=== PATIENT | female | born 1985 | race Caucasian/White ===

== ENCOUNTER → 2020-02-18 13:37 | Outpatient (BNVA) | payer OTHER, MEDICAID, SELFPAY | PROVIDERS: Family Provider Internal Medicine; Visit Provider Nurse Practitioner Women's Health | DX: O34.81 Maternal care for other abnormalities of pelvic organs, first trimester (principal); N83.11 Corpus luteum cyst of right ovary; O20.9 Hemorrhage in early pregnancy, unspecified; Z36.89 Encounter for other specified antenatal screening; Z3A.01 Less than 8 weeks gestation of pregnancy | CPT/HCPCS: 76817 ==

== ENCOUNTER → 2020-02-22 13:47 | Outpatient (BNVA) | payer OTHER, SELFPAY | PROVIDERS: Family Provider Internal Medicine; Visit Provider Nurse Practitioner Women's Health | DX: O09.899 Supervision of other high risk pregnancies, unspecified trimester (principal); Z86.718 Personal history of other venous thrombosis and embolism | CPT/HCPCS: 85027 ==

== ENCOUNTER → 2020-03-15 11:24 | Outpatient (BNVA) | payer OTHER, MEDICAID, SELFPAY | PROVIDERS: Family Provider Internal Medicine; Visit Provider Obstetrics & Gynecology | DX: O09.899 Supervision of other high risk pregnancies, unspecified trimester (principal); O21.9 Vomiting of pregnancy, unspecified; O09.291 Supervision of pregnancy with other poor reproductive or obstetric history, first trimester | CPT/HCPCS: 80053; 80307; 84315 ==

== ENCOUNTER → 2020-03-28 09:35 | Outpatient (BNVA) | payer OTHER, MEDICAID, SELFPAY | PROVIDERS: Family Provider Internal Medicine; PCP Internal Medicine; Visit Provider Obstetrics & Gynecology | DX: O10.919 Unspecified pre-existing hypertension complicating pregnancy, unspecified trimester (principal); Z3A.00 Weeks of gestation of pregnancy not specified | CPT/HCPCS: 80076; 82950; 84315; 86592; 86762; 86803; 86850; 86900; 87340; 87491; 87591; 88175 ==

== ENCOUNTER 2020-03-29 07:01 | Outpatient (CLI) | payer OTHER, MEDICAID, SELFPAY ==
--- NOTE | 2020-03-29 07:15 | USCV_ITS ---
Sarika Elizabeth Age: 34 Gender: F : 1985 Exam Date: 03/29/2020 07:19 Ordering Phys: Nita Guadarrama MD Technologist: Glenroy Perez Exam Location: [facility] [place] Indication: CHF BP: 130 / 80 HR: 87 Rhythm: Sinus Technical Quality: Suboptimal MEASUREMENTS (Male / Female) Normal Values 2D ECHO LV Diastolic Diameter PLAX 3.5 cm 4.2 - 5.9 / 3.9 - 5.3 cm LV Systolic Diameter PLAX 2.3 cm IVS Diastolic Thickness 0.9 cm 0.6 - 1.0 / 0.6 - 0.9 cm IVS Systolic Thickness 1.2 cm LVPW Diastolic Thickness 1.1 cm 0.6 - 1.0 / 0.6 - 0.9 cm LVPW Systolic Thickness 1.1 cm LVOT Diameter 2.0 cm LV Ejection Fraction 2D Teich 65.7 % LV Ejection Fraction MOD 2C 59.9 % LV Ejection Fraction 2C AL 59.4 % LA Diameter 3.3 cm LA Width 3.0 cm LA Height 4.9 cm RA Width 3.1 cm RA Height 4.8 cm Aorta at Sinotubular Diameter 2.4 cm M-MODE LV Diastolic Diameter MM 4.1 cm 4.2 - 5.9 / 3.9 - 5.3 cm LV Systolic Diameter MM 2.6 cm LV Ejection Fraction MM Teich 66.6 % IVS Diastolic Thickness MM 1.2 cm 0.6 - 1.0 / 0.6 - 0.9 cm IVS Systolic Thickness MM 1.6 cm LVPW Diastolic Thickness MM 1.1 cm 0.6 - 1.0 / 0.6 - 0.9 cm LVPW Systolic Thickness MM 1.5 cm RV Diastolic Diameter MM 2.0 cm Aortic Annulus Diameter 2.6 cm LA Ao Ratio MM 1.3 MV E Point Septal Separation 0.8 cm DOPPLER AV Peak Velocity 137.0 cm/s LVOT Peak Velocity 109.0 cm/s AV Area Cont Eq vti 2.4 cm squared AV Area Cont Eq pk 2.5 cm squared MV Area PHT 3.0 cm squared Mitral E to A Ratio 1.2 MV E' Velocity 18.0 cm/s Mitral E to MV E' Ratio 6.1 Mitral E to LV E' Lateral Ratio 4.7 Mitral E to LV E' Septal Ratio 8.7 TR Peak Velocity 150.0 cm/s TR Peak Gradient 9.0 mmHg TV Peak E Velocity 99.0 cm/s Right Atrial Pressure 3.0 mmHg Pulmonary Artery Systolic Pressu 12.0 mmHg FINDINGS Left Ventricle Normal left ventricular size, systolic function and wall thickness, with no regional wall motion abnormalities. Normal left ventricular wall thickness. Normal diastolic filling pattern. Left ventricular ejection fraction is estimated at 60 %. Right Ventricle The right ventricle is normal in size and function. Right Atrium The right atrium is normal in size. Left Atrium The left atrium is normal in size. Mitral Valve Structurally normal mitral valve without significant stenosis or prolapse. There is no mitral regurgitation. Aortic Valve Structurally normal aortic valve without significant sclerosis or stenosis. There is no aortic regurgitation. Tricuspid Valve Structurally normal tricuspid valve without significant stenosis or regurgitation. Pulmonary artery systolic pressure is normal. Pulmonic Valve Pulmonic valve not well visualized. Pericardium Normal pericardium without effusion. Aorta Normal ascending aorta dimension. CONCLUSIONS Normal transthoracic echocardiogram. No change from the previous echo dictated 06/09/2018 Dr. Gerard Madsen MD (Electronically Signed) Final Date: 29 Mar 2020 08:36 S
== END 2020-03-29 07:02 | disposition home or self-care (01) ==
PROVIDERS: Family Provider Internal Medicine; PCP Internal Medicine; Visit Provider Obstetrics & Gynecology
DX: Z86.79 Personal history of other diseases of the circulatory system (principal); I50.9 Heart failure, unspecified
CPT/HCPCS: 93306

== ENCOUNTER 2020-06-01 07:37 | Outpatient (CLI) | payer OTHER, MEDICAID, SELFPAY ==
[2020-06-01 08:02] LABS: Total Volume, Urine 1125 mL
[2020-06-01 08:29] LABS: Total Protein 24 Hour Urine 78.8 mg/24HR (0-150)
== END 2020-06-01 07:38 | disposition home or self-care (01) ==
PROVIDERS: PCP Internal Medicine; Visit Provider Obstetrics & Gynecology
DX: O09.291 Supervision of pregnancy with other poor reproductive or obstetric history, first trimester (principal)
CPT/HCPCS: 84156

== ENCOUNTER → 2020-07-20 13:57 | Outpatient (BNVA) | payer OTHER, SELFPAY | PROVIDERS: PCP Internal Medicine; Visit Provider Obstetrics & Gynecology | DX: O09.893 Supervision of other high risk pregnancies, third trimester (principal); O34.211 Maternal care for low transverse scar from previous cesarean delivery; Z86.79 Personal history of other diseases of the circulatory system; O09.293 Supervision of pregnancy with other poor reproductive or obstetric history, third trimester; O10.913 Unspecified pre-existing hypertension complicating pregnancy, third trimester; Z3A.29 29 weeks gestation of pregnancy | CPT/HCPCS: 80053; 82950; 84315; 84550; 85027 ==

== ENCOUNTER 2020-08-10 15:35 | Outpatient (CLI) | payer OTHER, MEDICAID, SELFPAY ==
--- NOTE | 2020-08-10 15:45 | USCV_ITS ---
Sarika Elizabeth Age: 34 Gender: F : 1985 Exam Date: 08/10/2020 15:55 Ordering Phys: Nita Guadarrama MD Technologist: Glenroy Perez Exam Location: [facility] [place] Indication: CHF BP: 135 / 87 HR: 91 Rhythm: Sinus Technical Quality: Fair MEASUREMENTS (Male / Female) Normal Values 2D ECHO LV Diastolic Diameter PLAX 4.2 cm 4.2 - 5.9 / 3.9 - 5.3 cm LV Systolic Diameter PLAX 2.4 cm IVS Diastolic Thickness 1.1 cm 0.6 - 1.0 / 0.6 - 0.9 cm IVS Systolic Thickness 1.2 cm LVPW Diastolic Thickness 1.0 cm 0.6 - 1.0 / 0.6 - 0.9 cm LVPW Systolic Thickness 1.2 cm LVOT Diameter 1.9 cm LV Ejection Fraction 2D Teich 69.7 % LV Ejection Fraction MOD 2C 38.7 % LV Ejection Fraction 2C AL 40.2 % LA Diameter 3.0 cm LA Width 4.1 cm LA Height 4.5 cm RA Width 3.3 cm RA Height 4.7 cm Aorta at Sinotubular Diameter 1.1 cm M-MODE LV Diastolic Diameter MM 4.3 cm 4.2 - 5.9 / 3.9 - 5.3 cm LV Systolic Diameter MM 2.7 cm LV Ejection Fraction MM Teich 69.2 % IVS Diastolic Thickness MM 1.0 cm 0.6 - 1.0 / 0.6 - 0.9 cm IVS Systolic Thickness MM 1.4 cm LVPW Diastolic Thickness MM 0.9 cm 0.6 - 1.0 / 0.6 - 0.9 cm LVPW Systolic Thickness MM 1.7 cm RV Diastolic Diameter MM 1.4 cm Aortic Annulus Diameter 3.6 cm LA Ao Ratio MM 0.9 MV E Point Septal Separation 0.7 cm DOPPLER AV Peak Velocity 149.0 cm/s LVOT Peak Velocity 95.0 cm/s AV Area Cont Eq vti 2.5 cm squared AV Area Cont Eq pk 1.9 cm squared MV Area PHT 5.0 cm squared Mitral E to A Ratio 1.1 MV E' Velocity 48.0 cm/s Mitral E to MV E' Ratio 7.3 Mitral E to LV E' Lateral Ratio 6.7 Mitral E to LV E' Septal Ratio 8.0 TR Peak Velocity 111.0 cm/s TR Peak Gradient 4.9 mmHg TV Peak E Velocity 76.0 cm/s Right Atrial Pressure 3.0 mmHg Pulmonary Artery Systolic Pressu 7.9 mmHg PV Peak Velocity 134.0 cm/s FINDINGS Left Ventricle Normal left ventricular size and systolic function, EF 55 %. No regional wall motion abnormalities. Right Ventricle The right ventricle is normal in size and function. Right Atrium The right atrium is normal in size. Left Atrium The left atrium is normal in size. Mitral Valve No gross abnormalities noted Aortic Valve No gross abnormalities noted Tricuspid Valve No gross abnormalities noted Pulmonic Valve No gross abnormalities noted Pericardium Normal pericardium without effusion. Aorta Normal ascending aorta dimension. CONCLUSIONS Normal left ventricular size and systolic function, EF 55 %. No regional wall motion abnormalities. Normal cardiac chamber sizes No significant stenotic valvular lesions There is no pericardial effusion. Technically difficult study because of the poor ultrasonic window. Compared to the previous study from 03/29/2020, there may not be a significant change Dr Jorge A Jacome MD FACC (Electronically Signed) Final Date: 10 August 2020 19:57 S
== END 2020-08-10 15:36 | disposition home or self-care (01) ==
LOC: US 15:36
PROVIDERS: PCP Internal Medicine; Visit Provider Obstetrics & Gynecology
DX: I50.9 Heart failure, unspecified (principal)
CPT/HCPCS: 93306

== ENCOUNTER 2020-08-17 10:53 | Outpatient (CLI) | payer OTHER, MEDICAID, SELFPAY ==
[2020-08-17 11:14] VITALS: BP 119/70; PULSE 83; RESP 17; TEMP 36.7
[2020-08-17 11:30] VITALS: BP 114/71; PULSE 82
[2020-08-17 11:44] VITALS: BP 114/71; PULSE 82; RESP 17; TEMP 36.7; BMI 38.2
--- NOTE | 2020-08-17 14:00 | PM.ACPR ---
Procedure/Consent Procedure Narrative: NONSTRESS TEST: Place of test: [facility] [place] Indication: Chronic hypertension at 33 weeks gestation Date of test: 08/17/2020 Baseline: 135 Variability: Moderate variability Accelerations: Accelerations present Decelerations: No decelerations Tocometry: no Contractions INTERPRETATION: NST reactive, continue kick counts
== END 2020-08-17 11:43 | disposition home or self-care (01) ==
LOC: OPOB 11:04 → OBGYN 12:00
PROVIDERS: PCP Internal Medicine; Visit Provider Obstetrics & Gynecology
DX: O16.9 Unspecified maternal hypertension, unspecified trimester (principal); Z3A.00 Weeks of gestation of pregnancy not specified
CPT/HCPCS: 12345; 59025; 81000; 99211

== ENCOUNTER 2020-08-24 14:30 | Outpatient (CLI) | payer OTHER, MEDICAID, SELFPAY ==
[2020-08-24 14:45] VITALS: BP 119/67; PULSE 91
[2020-08-24 14:48] VITALS: RESP 18; TEMP 36.8; BMI 38.9
[2020-08-24 15:00] VITALS: BP 114/63; PULSE 92
[2020-08-24 15:15] VITALS: BP 113/69; PULSE 97
[2020-08-24 15:20] VITALS: BP 113/69; PULSE 97; RESP 18
--- NOTE | 2020-08-24 16:40 | P.PCN_ITS ---
Procedure/Consent Procedure Narrative: NONSTRESS TEST: Place of test: [facility] [place] Indication: Chronic hypertension, history of DVT Date and time of test: 08/24/2020, 3 PM Baseline: 135 Variability: Moderate variability Accelerations: Accelerations present Decelerations: No decelerations Tocometry: no Contractions INTERPRETATION: NST reactive , continue kick counts
== END 2020-08-24 15:20 | disposition home or self-care (01) ==
LOC: OPOB 14:39 → OBGYN 14:40
PROVIDERS: PCP Internal Medicine; Visit Provider Obstetrics & Gynecology
DX: O16.9 Unspecified maternal hypertension, unspecified trimester (principal); Z3A.00 Weeks of gestation of pregnancy not specified
CPT/HCPCS: 12345; 59025; 81000

== ENCOUNTER → 2020-08-26 00:01 | Outpatient (BNVA) | payer OTHER, MEDICAID, SELFPAY | PROVIDERS: PCP Internal Medicine; Visit Provider Obstetrics & Gynecology | DX: O09.291 Supervision of pregnancy with other poor reproductive or obstetric history, first trimester (principal) | CPT/HCPCS: 84156 ==

== ENCOUNTER 2020-08-29 09:50 | Outpatient (CLI) | payer OTHER, MEDICAID, SELFPAY ==
[2020-08-29 10:05] VITALS: RESP 18; TEMP 36.8
[2020-08-29 10:15] VITALS: BMI 38.9
[2020-08-29 10:17] LABS: Add Urine Microscopic? NO
[2020-08-29 10:25] LABS: Basophils % 0.2 %; Eosinophils # 0.1 10^3/uL (0.0-0.8); Eosinophils % 1.1 %; Hematocrit 33.7 % (37.0-47.0); Lymphocytes % 15.5 %; Mean Corpuscular HGB Conc 32.6 g/dL (30.0-36.0); Mean Corpuscular Hemoglobin 27.6 pg (28.0-34.0); Mean Corpuscular Volume 84.7 fL (81-99); Mean Platelet Volume 12.2 fL (7.4-10.4); Monocytes # 0.4 10^3/uL (0.2-0.9); Monocytes % 5.7 %; Neutrophils # 4.89 10^3/uL (1.8-7.7); Neutrophils % 77.2 %; Nucleated Red Blood Cells % 0 %; Platelet Count 212 10^3/cmm (130-400); Red Blood Count 3.98 10^6/uL (4.1-5.3); Red Cell Distribution Width 13.9 % (12.1-15.1); White Blood Count 6.3 10^3/uL (4.0-10.0)
[2020-08-29] MEDS: diphenhydrAMINE 50 mg/mL SDV 1mL IM (10:28)
[2020-08-29] MEDS: promethazine 25 mg/mL SDV 1 mL IM (10:29)
[2020-08-29] MEDS: HYDROcodone-acetaminophen 5-325 mg Tablet 1 TAB PO (10:29)
[2020-08-29 10:36] LABS: Protein Urine Neg (Negative); Specific Gravity, Urine 1.015 (1.005-1.030); Urine Appearance Clear (CLEAR); Urine Color Yellow (Yellow); pH Urine 6 (5-7)
[2020-08-29 10:37] LABS: Alanine Aminotransferase 13 U/L (0-33); Albumin Level 3.5 g/dL (3.5-5.2); Alkaline Phosphatase 138 IU/L (35-105); Anion Gap 13.7 (5-19); Aspartate Amino Transferase 14 U/L (0-32); Bilirubin Urine 1+ (Negative); Blood Urea Nitrogen 6 mg/dL (6-20); Blood Urine Neg (Negative); Calcium 8.5 mg/dL (8.5-10.5); Carbon Dioxide 19 mmol/L (22-29); Chloride 105 mmol/L (98-107); Globulin 2.6 g/dL (1.3-4.6); Glomerular Filtration Rate 181.6 mL/min (90-130); Glucose 113 mg/dL (65-115); Glucose Urine UA Norm (Normal); Ketones Urine Negative (Negative); Leukocyte Esterase Urine Negative (Negative); Nitrate Urine Negative (Negative); Osmolality Calculated 276 mOsm/kg (285-295); Potassium 3.7 mmol/L (3.5-5.1); Sodium 134 mmol/L (136-145); Total Bilirubin 0.6 mg/dL (0.15-1.2); Total Protein 6.1 g/dL (6.6-8.7); Uric Acid 3.4 mg/dL (2.4-5.7); Urobilinogen Urine 4 mg/dL (Negative)
[2020-08-29 10:41] LABS: Urine Creatinine 159 mg/dL (28-217)
[2020-08-29 10:42] LABS: UPRO/UCREAT Ratio 0.22 mg/mg CR; Urine Protein Random 35 mg/dL
[2020-08-29 11:15] VITALS: BP 114/61; PULSE 74
[2020-08-29 11:24] VITALS: BP 108/65; PULSE 72
[2020-08-29 11:45] VITALS: BP 108/65; RESP 18
== END 2020-08-29 11:45 | disposition home or self-care (01) ==
LOC: OPOB 09:57 → OBGYN 09:58
PROVIDERS: PCP Internal Medicine; Visit Provider Obstetrics & Gynecology
DX: O16.9 Unspecified maternal hypertension, unspecified trimester (principal); Z3A.00 Weeks of gestation of pregnancy not specified
CPT/HCPCS: 36415; 80053; 81003; 82570; 84156; 84550; 85025; 96372; 99211; J1200; J2550

== ENCOUNTER 2020-08-31 09:30 | Outpatient (CLI) | payer OTHER, MEDICAID, SELFPAY ==
[2020-08-31 09:30] VITALS: BMI 38.9
[2020-08-31 09:42] VITALS: BP 132/74; PULSE 93; RESP 16; TEMP 36.8
[2020-08-31 10:02] VITALS: BP 127/66; PULSE 97
--- NOTE | 2020-09-03 16:00 | PM.ACPR ---
NST (Non-Stress Test) NST : 10 Para: 3,339 Due date: 10/05/20 Gestational age (weeks): 35 Indications: Chronic hypertension complicating in third trimester Test: NST Time: 09:42 Length of test in Minutes: 25 Contractions: None Fetus Fetus 1: Baseline FHR BMP:: 135 Variability: Moderate Accelerations: Present Decelerations: None Reacticity: Reactive Interpretation/Plan Interpretation by: Saud Felton Comments: Reactive NST. Time Out Is a Time Out required?: No
== END 2020-08-31 10:08 | disposition home or self-care (01) ==
LOC: OPOB 09:37
PROVIDERS: Absent Provider Obstetrics & Gynecology; PCP Internal Medicine; Visit Provider Obstetrics & Gynecology
DX: O16.9 Unspecified maternal hypertension, unspecified trimester (principal); Z3A.00 Weeks of gestation of pregnancy not specified
CPT/HCPCS: 12345; 59025; 81000; 99211

== ENCOUNTER 2020-09-07 16:56 | Outpatient (CLI) | payer OTHER, MEDICAID, SELFPAY ==
[2020-09-07 16:56] VITALS: BMI 38.9
[2020-09-07 17:05] VITALS: BP 136/86; PULSE 104
[2020-09-07 17:26] VITALS: BP 148/84; PULSE 91
[2020-09-07 17:37] VITALS: RESP 18; TEMP 36.7
--- NOTE | 2020-09-10 18:01 | PM.ACPR ---
NST (Non-Stress Test) NST : 10 Para: 3,339 Due date: 10/05/20 Gestational age (weeks): 36 Indications: Prepregnancy hypertension complicating in third trimester at 36-0/7 weeks gestation Test: NST Time: 17:04 Length of test in Minutes: 32 Contractions: None Fetus Fetus 1: Baseline FHR BMP:: 135 Variability: Moderate Accelerations: Present Decelerations: None Reacticity: Reactive Interpretation/Plan Interpretation by: Saud Felton Comments: Reactive NST without contractions. Time Out Is a Time Out required?: No
== END 2020-09-07 17:40 | disposition home or self-care (01) ==
LOC: OPOB 17:00 → OBGYN 17:01
PROVIDERS: PCP Obstetrics & Gynecology; Visit Provider Obstetrics & Gynecology
DX: O16.9 Unspecified maternal hypertension, unspecified trimester (principal); Z3A.00 Weeks of gestation of pregnancy not specified
CPT/HCPCS: 12345; 59025; 81000; 87081; 99211

== ENCOUNTER → 2020-09-09 12:36 | Outpatient (BNVA) | payer OTHER, MEDICAID, SELFPAY | PROVIDERS: PCP Obstetrics & Gynecology; Visit Provider Obstetrics & Gynecology | DX: O09.899 Supervision of other high risk pregnancies, unspecified trimester (principal) | CPT/HCPCS: 80053; 82570; 84156; 84550; 85027; 87635 ==

== ENCOUNTER 2020-09-14 05:13 | Inpatient (IN) | payer OTHER, MEDICAID, SELFPAY ==
--- NOTE | 2020-08-26 11:59 | P.ANESASSM_ITS ---
Pre-Anesthetic Assessment Pre-Anesthetic Assessment: Height/Weight: Height 1.6 m Preop Diagnosis: IUP Proposed Procedure: Operation Date: 09/21/20 07:20 Proposed Procedures p Section Repeat With Tubal [id number] O09.899 O34.219 Z86.79 Z30.2(Not Applicable) - Saud Felton MD Familial anesthetic complications: None Social: Social History: No alcohol and No tobacco Exam: Pre-Anes Outpt Exam: alert, oriented x 3, clear to auscultation bilaterally and regular rate & rhythm Airway: Cervical ROM: WNL MP: 1 Dentition: Full Pulmonary: Pulmonary: [place] CV/HEM: CV/HEM: CHF (perpartum cardiomyopathy 3 years ago, was in ICU for 5 days. Echo now shows recovery, but patient complains of orthopnea, [place]. Saw dr. marie, put on lasix), DVT (with previous ) and HTN (hx preeclampsia) Comments: echo 07/31 CONCLUSIONS Normal left ventricular size and systolic function, EF 55 %. No regional wall motion abnormalities. Normal cardiac chamber sizes No significant stenotic valvular lesions There is no pericardial effusion. Technically difficult study because of the poor ultrasonic window. Compared to the previous study from 03/29/2020, there may not be a significant change Anesthetic Plan: ASA status: 3 Anesthesia: Regional (specify below) Risk of > 500 ml blood loss (7ml/kg in children): No Other Pertinent Information: Now taking lasix prn for sob, may have c-sections [address] ramesh [facility] Anesthesia PFSH: Medical History Factitious disorder Dx in 2003 H/O deep venous thrombosis She states that in March 2016 she had a DVT in her left calf while undergoing her first cycle of IVF with hormones and was told that the DVT was due to hormones Hypertension Reports that she had preeclampsia and developed congestive heart failure in the time. She states that she was on a lot of blood pressure medications at that time and was able to wean off of this and is just on hydrochlorothiazide at this time. She has not really been monitoring her blood pressures prior to finding out she was . -EKG done on 03/17/2020 showed sinus rhythm No pertinent past medical history Denies asthma, seizures, PE, diabetes. PCP: Dr. Boo Surgical History H/O section delivery performed in 2017 delivery of triplets. Surgery performed in [facility]-operative reports were received on 06/02/2020 and scanned- low transverse delivery via Pfannenstiel incision, 2 layer closure without any extensions. H/O dilation and curettage 2003-Performed at [facility] in [place], [place] 03/19/09-suction dilation and curettage done for incomplete Performed by Dr Rj Ha at [facility] in [place], [place]. H/O laparoscopy 10/06/2008--Performed by Dr Rj Ha at [facility] in [place], [place] -Return for left ovarian cyst and pelvic pain. During laparoscopy patient was noted to have omental adhesions adherent to the left pelvic sidewall down underneath the left ovary also indications of the left fallopian tube to the ovary. Uterus was normal and appendix was normal as well. Operative report has been scanned. H/O laparoscopy 03/2014--Diagnostic laparoscopy done for pelvic pain by Dr. Topete. Adhesions were taken down. H/O tubal ligation 05/31/2010--done --Bilateral partial salpingectomy Performed by Dr Ha at [facility] in [place], [place] History of cholecystectomy 2004- Performed at [facility] in [place], [place]. she states that her gallbladder was first removed and that she had gallstones into the bile duct she was then transferred to [place] with a second surgery was performed to remove the gallstones from the bile duct. History of incision and drainage 08/29/16--scalp History of reversal of tubal ligation 07/2015 laparotomy with reanastomosis of fallopian tubes. Right and left ampullary infundibular anastomosis was done Performed by Dr Rosio Bishop in [facility]. Family History Father Heart disease Hypertension Mother Hypertension Diabetes Hyperlipidemia Family/Other Breast cancer Maternal aunt, diagnosed at age 40 Sister Breast cancer diagnosed at age 40 Heart disease 2 sisters Grandmother Suicide patnernal Denies family history of Colon cancer Ovarian cancer Uterine cancer Data Anesthesia Cardiac Studies: No Data to Display
[2020-09-14] VITALS (28 sets, daily range): BP systolic 112–135; BP diastolic 67–87; PULSE 64–94; RESP 16–18; TEMP 36.4–36.8; O2SAT 96–100; BMI 39.4
[2020-09-14] MEDS: lactated ringers 1,000 ML 999 ML IV (06:13)
[2020-09-14] MEDS: famotidine 20 mg/2 mL INJ IVP (06:26)
[2020-09-14] MEDS: citric acid-sodium citrate 30 mL UDC PO (06:26)
[2020-09-14 06:28] LABS: Basophils % 0.2 %; Eosinophils # 0.1 10^3/uL (0.0-0.8); Eosinophils % 1.8 %; Hemoglobin 10.6 g/dL (11.5-15.3); Lymphocytes # 1.2 10^3/uL (0.8-4.8); Lymphocytes % 17.5 %; Mean Corpuscular HGB Conc 32.1 g/dL (30.0-36.0); Mean Platelet Volume 12.7 fL (7.4-10.4); Monocytes # 0.5 10^3/uL (0.2-0.9); Monocytes % 7.6 %; Neutrophils # 4.75 10^3/uL (1.8-7.7); Neutrophils % 72.3 %; Nucleated Red Blood Cells % 0 %; Platelet Count 194 10^3/cmm (130-400); Red Blood Count 3.93 10^6/uL (4.1-5.3); Red Cell Distribution Width 13.9 % (12.1-15.1); White Blood Count 6.6 10^3/uL (4.0-10.0)
[2020-09-14] MEDS: metoclopramide 5 mg/mL SDV 2 mL 10 MG IVP (06:28)
--- NOTE | 2020-09-14 06:53 | P.ANESASSM_ITS ---
Pre-Anesthetic Assessment Pre-Anesthetic Assessment: Height/Weight: Height 1.6 m Pulse BP 94 120/83 09/14/20 06:35 09/14/20 06:35 Preop Diagnosis: IUP Proposed Procedure: Operation Date: 09/14/20 06:30 Proposed Procedures p Section Repeat With Tubal [id number] O09.899 O34.219 Z86.79 Z30.2(Not Applicable) - Saud Felton MD Last Intake: 00:00 Social: Social History: No alcohol and No tobacco Exam: Pre-Anes Outpt Exam: alert and oriented x 3 Airway: Submandibular: WNL Cervical ROM: WNL MP: 2 Pulmonary: Pulmonary: SOB (with exertion) CV/HEM: CV/HEM: CHF (started after previous followed by cardiology EF 60%), DVT (takes heparin 5000 units sub Q taken at 1700 yesterday stopped greater than 12 hours will proceed with spinal) and HTN : : None reported Hepatic: Hepatic: None reported GI: GI: GERD Metabolic: Metabolic: None reported Musc/skel: Musc/skel: None reported Neuropsych: Neuropsych: None reported Anesthetic Plan: ASA status: 3 Anesthesia: Anesthesia Evaluation and Regional (specify below) PFSH Anesthesia PFSH: Medical History Factitious disorder Dx in 2003 H/O deep venous thrombosis She states that in March 2016 she had a DVT in her left calf while undergoing her first cycle of IVF with hormones and was told that the DVT was due to hormones Hypertension Reports that she had preeclampsia and developed congestive heart failure in the time. She states that she was on a lot of blood pressure medications at that time and was able to wean off of this and is just on hydrochlorothiazide at this time. She has not really been monitoring her blood pressures prior to finding out she was . -EKG done on 03/17/2020 showed sinus rhythm No pertinent past medical history Denies asthma, seizures, PE, diabetes. PCP: Dr. Boo Surgical History H/O section delivery performed in 2017 delivery of triplets. Surgery performed in [facility]-operative reports were received on 06/02/2020 and scanned- low transverse delivery via Pfannenstiel incision, 2 layer closure without any extensions. H/O dilation and curettage 2003-Performed at [facility] [place], [place] 03/19/09-suction dilation and curettage done for incomplete Performed by Dr Rj Ha at [facility] in [place], [place]. H/O laparoscopy 10/06/2008--Performed by Dr Rj Ha at [facility] in [place], [place] -Return for left ovarian cyst and pelvic pain. During laparoscopy patient was noted to have omental adhesions adherent to the left pelvic sidewall down underneath the left ovary also indications of the left fallopian tube to the ovary. Uterus was normal and appendix was normal as well. Operative report has been scanned. H/O laparoscopy 03/2014--Diagnostic laparoscopy done for pelvic pain by Dr. Topete. Adhesions were taken down. H/O tubal ligation 05/31/2010--done --Bilateral partial salpingectomy Performed by Dr Ha at [facility] [place], [place] History of cholecystectomy 2004- Performed at [facility] [place], [place]. she states that her gallbladder was first removed and that she had gallstones into the bile duct she was then transferred to [place] with a second surgery was performed to remove the gallstones from the bile duct. History of incision and drainage 08/29/16--scalp History of reversal of tubal ligation 07/2015 laparotomy with reanastomosis of fallopian tubes. Right and left ampullary infundibular anastomosis was done Performed by Dr Rosio Bishop in [facility] [place] [facility]. Family History Father Heart disease Hypertension Mother Hypertension Diabetes Hyperlipidemia Family/Other Breast cancer Maternal aunt, diagnosed at age 40 Sister Breast cancer diagnosed at age 40 Heart disease 2 sisters Grandmother Suicide patnernal Denies family history of Colon cancer Ovarian cancer Uterine cancer Social History Smoking and tobacco status: never smoked Alcohol intake: never Data Anesthesia CBC & Chem 7: 09/14/20 05:55 Other Labs: Laboratory Results - last 48 hr 09/14/20 05:55 WBC 6.6 RBC 3.93 L Hgb 10.6 L Hct 33.0 L MCV 84.0 MCH 27.0 L MCHC 32.1 RDW 13.9 Plt Count 194 MPV 12.7 H Neut % (Auto) 72.3 Lymph % (Auto) 17.5 [place] % (Auto) 7.6 Eos % (Auto) 1.8 Baso % (Auto) 0.2 Neut # (Auto) 4.75 Lymph # (Auto) 1.2 [place] # (Auto) 0.5 Eos # (Auto) 0.1 Baso # (Auto) 0.0 Nucleated RBC % (auto) 0 Nucleated RBCs # 0.0 Cardiac Studies: No Data to Display
[2020-09-14 07:19] LABS: Urine Creatinine 173 mg/dL (28-217)
[2020-09-14 07:24] LABS: UPRO/UCREAT Ratio 0.18 mg/mg CR; Urine Protein Random 31 mg/dL
--- NOTE | 2020-09-14 08:24 | PM.OP ---
Operative Report Date of procedure: September 14, 2020 OPERATIVE REPORT Date of surgery: 09/14/2020 Date of dictation: 09/14/2020 Preoperative diagnosis: Chronic hypertension, repeat delivery and desires sterilization Postoperative diagnosis/findings: Baby girl 7/8 Procedure done: Repeat low transverse delivery with a total salpingectomy for sterilization Specimens removed/disposition of specimens: Right and left fallopian tube sent to pathology Surgeon: Dr. Nita Bhatt retail loan originator assistant: Kimberly Lam Anesthesia: Spinal anesthesia Estimated blood loss: 800 ml Intravenous fluids: 800 Urine output: 50 mL of clear urine at the end of procedure Medications: As per anesthesia records Complications: None, patient was left to recover in a stable condition PROCEDURE: After consent was obtained, patient was taken to the operating room where spinal anesthesia was placed without difficulty. She was placed supine on the table with a left lateral wedge. Chua catheter and SCDs were placed. The abdomen was shaved and then prepped with duo prep. She was draped in a sterile fashion. After checking adequacy of anesthesia, a Pfannenstiel incision was made over her old incision. The incision was carried down to the fascia using the Bovie. The fascia was nicked in the midline and the fascial incision was extended laterally using curved Mayos. The inferior aspect of the fascia was grasped with jimmy clamps and dissected off from the underlying rectus muscle. This was repeated again superiorly without any difficulty. The rectus muscle was . A gege was made in the peritoneum and the peritoneal incision was carried inferiorly taking care to proceed in layers so as to avoid the bladder. The peritoneal incision was extended superiorly as well. Dense omental adhesions were noted onto the anterior abdominal wall and this was taken down after ensuring that there was no bowel involved. This was taken down and a combination of sharp and cautery dissection. The uterus was noted to be rotated to the left. The bladder peritoneum was grasped with smooth forceps a bladder flap was created. Minimal bladder lesions were noted. The bladder blade was replaced thus protecting the bladder. A LOW TRANSVERSE UTERINE INCISION was made with a scalpel till the amniotic membrane was reached. The uterine incision was then extended laterally using bandage scissors. Amniotomy was done with Allis clamps and clear amniotic fluid was drained. The head of the baby was brought up to the level of the incision and delivered with fundal pressure. The remainder of body followed without any difficulty. The nose and mouth were suctioned, the umbilical cord was clamped and cut and the baby was handed off to the waiting tie puller, Dr. Garduno. The placenta was delivered spontaneously with fundal massage. It was noted to be intact and was discarded. The interior of the uterus was cleaned of all clot and debris and was noted to be tanvi well. The uterus was exteriorized. The uterine incision was closed with 0 Vicryl in a running interlocking manner. Good hemostasis and reapproximation was obtained. Second imbricating layer was done without any difficulty and good hemostasis and reapproximation was obtained. The abdomen was irrigated and the gutters were cleaned of clot and debris. Normal tubes and ovaries were noted bilaterally. At this time we will proceed with total salpingectomy. Using the abdominal Voyant the mesosalpinx first on the right side and on the left side was grasped clamped, cauterized and then cut proceeding from the fimbriated end to its cornual end without any difficulty. The entire fallopian tube was taken out first on the right and then on the left side without any difficulty. Good hemostasis was achieved. Next attention was turned to clamp the cornual end and this was cauterized well. Sites of surgery remain hemostatic. The uterus was placed back into the abdomen and uterine incision was noted to be hemostatic. The peritoneum was closed with a 2-0 plain in a continuous stitch. The rectus muscle was reapproximated with 2-0 plain suture in a mattress stitch. Good hemostasis was noted in the rectus muscle layer. The fascia was inspected for any defects and none were found and the fascia was closed with 0 Vicryl in continuous stitch. The subcutaneous plane was then irrigated and hemostasis was obtained using the Bovie. The subcutaneous plane was then reapproximated using 2-0 plain suture in a continuous manner. The skin was then closed with 4-0 Monocryl in a subcuticular fashion. Good reapproximation and hemostasis was noted. Steri-Strips were applied. The incision was dressed with Telfa ,ABD and paper tape. The fundus was noted to be firm at the end of the procedure and excess blood was expressed from the vagina. The patient was left to recover in a stable condition. Pre-op Diagnosis: IUP
[2020-09-14] MEDS: morphine 4 mg/mL SDV 1 mL 2 MG IVP (11:02)
--- NOTE | 2020-09-14 11:59 | PC.NURSE ---
Instructed mom on breast expression. Provided her with supplies to collect, label and store her milk.
[2020-09-14] MEDS: dextrose 5%-lactated ringers 1,000 ML 125 ML IV ×2 (14:24→23:54)
[2020-09-14] MEDS: heparin 5,000 unit/mL INJ 1 mL 5000 UNIT SUBCUT (20:42)
[2020-09-14] MEDS: HYDROcodone-acetaminophen 5-325 mg Tablet PO (20:59)
[2020-09-14 21:07] LABS: Hematocrit 31.8 % (37.0-47.0); Hemoglobin 10.3 g/dL (11.5-15.3); Mean Corpuscular HGB Conc 32.4 g/dL (30.0-36.0); Mean Corpuscular Hemoglobin 27.2 pg (28.0-34.0); Mean Corpuscular Volume 83.9 fL (81-99); Mean Platelet Volume 12.4 fL (7.4-10.4); Platelet Count 242 10^3/cmm (130-400); Red Blood Count 3.79 10^6/uL (4.1-5.3); Red Cell Distribution Width 13.8 % (12.1-15.1); White Blood Count 13.7 10^3/uL (4.0-10.0)
[2020-09-15 03:12] VITALS: BP 112/77; PULSE 83; RESP 18; TEMP 37; O2SAT 96
[2020-09-15] MEDS: heparin 5,000 unit/mL INJ 1 mL 5000 UNIT SUBCUT ×2 (04:36→12:35)
--- NOTE | 2020-09-15 04:51 | PC.NURSE ---
Pt. called staff to room to check IV. Pt. had attempted to reach for an item off her bedside table and pulled on her IV. IV was completely pulled out and had to be discontinued at this time.
[2020-09-15] MEDS: HYDROcodone-acetaminophen 5-325 mg Tablet PO ×5 (04:57→20:15)
[2020-09-15] MEDS: docusate sodium 100 mg Capsule PO ×3 (08:17→18:47)
[2020-09-15] MEDS: prenatal vitamin Capsule 1 CAP PO (08:17)
[2020-09-15 10:20] VITALS: BP 121/73; PULSE 90; RESP 16; TEMP 36.7; O2SAT 100
--- NOTE | 2020-09-15 12:19 | ANE.PACU2 ---
Inpatient post-anesthesia follow up: Airway intact: Yes Vital signs: Temperature 98.0 F Pulse Rate 90 Respiratory Rate 16 Blood Pressure 121/73 Pulse Oximetry 100 Oxygen Delivery Me thod Room Air Oxygen Flow Rate Fraction of Inspir ed Oxygen Hydration adequate: Yes Nausea and vomiting: No Pain level: 2 Mental status: Baseline Additional Comments: No signs of infection at neuraxial site, no headaches, no numbness/weakness in lower extremities, up and walking, urinating without chao
--- NOTE | 2020-09-15 12:34 | P.PN_ITS ---
Subjective Subjective: Interval history: SUBJECTIVE: Ms. Baum is doing well today. She states that she has minimal pain and pain is controlled with p.o. pain medication. She has been ambulating well passing gas and tolerating regular diet although she does not have much of an appetite. She denies any shortness of breath, chest pain, nausea, vomiting, fever, chills. She states that her incision is healing well. Denies any swelling. She is breast-feeding without any difficulty. She states that she feels completely different compared to after her first . OBJECTIVE/PHYSICAL EXAM: Gen.: No acute distress Heart: S1-S2 heard, regular rate and rhythm Lungs: Clear to auscultation bilaterally Abdomen: Soft, fundus firm below umbilicus, tenderness around incision. Incision: Clean dry and intact with Steri-Strips. Legs: No calf tenderness, no pitting pedal edema. ASSESSMENT AND PLAN: 34-year old status post repeat delivery with total salpingectomy for sterilization-postoperative day #1 -Continue routine postoperative care -Encourage ambulation -History of DVTs-currently receiving heparin and also has SCDs. Will discontinue heparin and switch to Lovenox 40 mg twice daily at this time and she will need to stay on this for 6 weeks and she is aware of this -P.o. pain medication as needed -Chronic hypertension-blood pressures have been normal thus far-we will hold labetalol for now and will consider restarting this tomorrow depending on blood pressure trend -No concern for cardiomyopathy or pulmonary edema at this time. If she continues to do well at this time anticipate discharge home tomorrow evening. Vitals/I&O/Wt Last Vital Signs Temp 98.0 F 09/15/20 10:20 Pulse 90 09/15/20 10:20 Resp 16 09/15/20 10:20 BP 121/73 09/15/20 10:20 Pulse Ox 100 09/15/20 10:20 09/14/20 09/15/20 09/15/20 22:59 06:59 14:59 Intake Total 1000 / 1800 702.083 / 2502.083 Output Total 660 / 1830 1425 / 3255 100 / 100 Balance 340 / -30 -722.917 / -752.917 -100 / -100 Weight last 48 hrs Weight 223 lb Physical Exam 2 Urinary Catheter Management^: Chua: Cath Placed During This Visit: yes, but has since been removed by the nurse Reason for Continuing Indwelling Catheter: Required Immobilization for Trauma or Surgery or Anesthesia Urinary Catheter Date of Insertion: 09/14/20 Urinary Catheter Time of Insertion: 07:10 Date Urinary Catheter Removed: 09/15/20 Time Urinary Catheter Discontinued: 04:50 Data : 09/14/20 20:55 Attestations Medical Necessity Statement*: She needs to stay to recover from surgery for another 2 midnights Coding Level of Care Code Acute Experimental Mechanic for Brodie Enamorado
[2020-09-15] MEDS: ibuprofen 800 mg tablet PO ×2 (15:39→20:15)
[2020-09-15 16:45] VITALS: BP 134/81; PULSE 96; RESP 16; TEMP 36.9; O2SAT 98
[2020-09-15] MEDS: dextrose 5%-lactated ringers 1,000 ML 125 ML IV (18:48)
[2020-09-15] MEDS: enoxaparin 40 mg/0.4 mL Syringe SUBCUT (20:14)
[2020-09-15] MEDS: lanolin oint 7 gm 1 APPLIC TOPICAL (20:15)
[2020-09-15 21:52] VITALS: BP 120/79; PULSE 81; RESP 16; TEMP 36.6; O2SAT 96
[2020-09-16] MEDS: HYDROcodone-acetaminophen 5-325 mg Tablet PO ×2 (01:45→08:05)
[2020-09-16 04:06] VITALS: BP 108/70; PULSE 79; RESP 15; TEMP 36.6; O2SAT 96
--- NOTE | 2020-09-16 04:38 | PC.NURSE ---
Lung sounds auscultated with vital signs at 2152; clear breath sounds noted throughout. Pt states no SOB or difficulty breathing.
--- NOTE | 2020-09-16 04:40 | PC.NURSE ---
Lung sounds auscultated with vital signs at 0406; clear breath sounds throughout. Pt states no SOB or difficulty breathing.
[2020-09-16] MEDS: ferrous sulfate EC 325 mg Tablet PO (08:05)
[2020-09-16] MEDS: prenatal vitamin Capsule 1 CAP PO (08:05)
[2020-09-16] MEDS: enoxaparin 40 mg/0.4 mL Syringe SUBCUT (08:09)
--- NOTE | 2020-09-16 08:19 | PC.NURSE ---
No respiratory distress noted at this time.
--- NOTE | 2020-09-16 08:29 | PC.NURSE ---
Clear lung sounds auscultated throughout bilateral lungs, performed with shift assessment, no SOB or difficulty breathing at this time.
--- NOTE | 2020-09-16 09:31 | PM.OBGYDC ---
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 Date of Admission: 09/14/20 05:13 Date of Discharge: 09/16/20 Attending Provider at Admission: Nita Guadarrama MD Attending Provider at Discharge: Nita Guadarrama MD Primary Care Provider: Nita Guadarrama MD Reason for Visit Reason for Visit: due date 09/21/20 PRE'D OP'D 08/26 Hospital Course Discharge Summary: Date of surgery: 09/14/2020 Preoperative diagnosis: Chronic hypertension not well controlled on medication, 10 para 3-3-3-9 at 37 weeks and 0 days, repeat delivery and desires sterilization, history of DVT on blood thinners, history of congestive heart failure, advanced maternal age, history of preeclampsia-currently negative for preeclampsia Procedure done: Repeat low transverse delivery with a total salpingectomy for sterilization Specimens removed/disposition of specimens: Right and left fallopian tube sent to pathology Surgeon: Dr. Nita Bhatt Indication for surgery: Ms. Baum is a 34-year-old 10 para 3-3-3-9 at 37 weeks and 0 days who presented on 09/14/2020 for scheduled surgery. She had a previous and declined trial of labor and also wanted total salpingectomy done for sterilization. She had a complicated history and has chronic hypertension initially not requiring medication throughout the however from 35 weeks on was started to have more and more elevated blood pressures and ended up needing to start medication and given this decision was made to proceed with delivery at 37 weeks. She also has a history of cardiomyopathy with her previous as well as DVT and was on heparin. Last dose of heparin was taken at 5 PM the day before surgery. She also has a history of preeclampsia and was aspirin with this . Lab work done the week as well as the day of surgery was negative for preeclampsia and she was asymptomatic for preeclamptic symptoms as well. She had no new questions or concerns on the day of surgery. HOSPITAL COURSE: She underwent an uncomplicated repeat delivery with total salpingectomy for sterilization on 09/14/2020-please refer to operative reports for details.. She did well on day 0 and was ambulating well, tolerating regular diet, voiding freely, passing flatus. She was breast-feeding without difficulty and bonding well with her daughter. Her daughter initially required some oxygen support and then did well. Pain was well-controlled with by mouth pain medication. She denied nausea, vomiting, fever, chills, shortness of breath, leg pain. She had moderate vaginal bleeding. On day #1 she continued to do well with stable vital signs and stable hemoglobin at 10.3. 12 hours after surgery she was started on heparin then then transition to Lovenox 40 mg twice daily for DVT prophylaxis. Blood pressure was completely normal without any elevations and decision was made to discontinue the antihypertensives that she was taking prior to surgery. Oxygen saturation and other vital signs were within normal limits. She was discharged home on day 2 in a stable condition, as she desired early discharge. Warning signs for endometritis, wound infection, mastitis, DVT/PE were reviewed with her. Post delivery activity restrictions were also reviewed with her at all her questions were answered to her satisfaction. Had sterilization for contraception. She will have close follow-up weekly and understands the importance of this follow-up. She has an appointment scheduled for 4-week follow-up with cardiology as well. EXAM AT DISCHARGE: Gen.: No acute distress Heart: S1-S2 heard, regular rate and rhythm Lungs: Clear to auscultation bilaterally Abdomen: Soft, fundus firm below umbilicus, tenderness around incision. Incision: Clean dry and intact with Steri-Strips. Legs: No calf tenderness, no pitting pedal edema. CONDITION AT DISCHARGE: Stable Information Peripartum Data: Infant Delivery Method: Section Physical Exam Urinary Catheter Management^: Chua: Cath Placed During This Visit: yes, but has since been removed by the nurse Reason for Continuing Indwelling Catheter: Required Immobilization for Trauma or Surgery or Anesthesia Urinary Catheter Date of Insertion: 09/14/20 Urinary Catheter Time of Insertion: 07:10 Date Urinary Catheter Removed: 09/15/20 Time Urinary Catheter Discontinued: 04:50 Discharge Data Data Completed and Pending: Pending at discharge Category Date Time Status Pathology: Surgic al [PTH] Routine Pth 09/14/20 10:33 Received Vitals: Last Vital Signs Temp 97.9 F 09/16/20 04:06 Pulse 79 09/16/20 04:06 Resp 15 09/16/20 04:06 BP 108/70 09/16/20 04:06 Pulse Ox 96 09/16/20 04:06 Discharge Plan Discharge Patient Disposition: Home Condition: Stable Prescriptions: New hydrocodone-acetaminophen 5-325 mg tablet 1 tab PO Q6H Qty: 25 RF: 0 docusate sodium 100 mg Capsule 100 mg PO BID PRN (Reason: constipation) Qty: 30 RF: 0 ibuprofen 800 mg tablet 800 mg PO Q8H Qty: 30 RF: 0 enoxaparin 40 mg/0.4 mL Syringe 40 mg SUBCUT Q12H 41 Days Qty: 32.8 RF: 0 Continued prenat.vits,cruz,[id number] Tablet 1 tab PO DAILY RF: 0 loratadine [Claritin] 10 mg tablet 10 mg PO DAILY RF: 0 Discontinued aspirin [Adult Aspirin Regimen] 81 mg tablet,delayed release (DR/EC) 81 mg PO DAILY RF: 0 heparin (porcine) 5,000 unit/mL (1 mL) cartridge 5,000 unit SUBCUT Q8H 14 Days Qty: 42 RF: 0 labetalol 100 mg tablet 100 mg PO BID Qty: 60 RF: 0 Discharge Orders: Discharge Order (Routine); Ordered 09/16/20 Ordered By: Nita Guadarrama Referrals: Nita Guadarrama MD [Primary Care Provider] - (1 week, 2-week, 3-week and 6-week follow-up. Follow-up with cardiology as previously scheduled) Activity Restrictions/Additional Instructions: Pelvic rest and no heavy lifting for 6 weeks Discharge Attestations WALLP[employer]ER HANGER HELPER Time Spent in Discharge Care*: greater than 30 min Coding Level of Care Code Acute Report Checker for Brodie Enamorado
[2020-09-16] MEDS: ibuprofen 800 mg tablet PO (09:33)
[2020-09-16] MEDS: docusate sodium 100 mg Capsule PO (09:35)
[2020-09-16 10:39] VITALS: BP 107/72; PULSE 86; RESP 18; TEMP 36.7; O2SAT 96
--- NOTE | 2020-09-16 10:40 | PC.NURSE ---
Bilateral lung sounds clear upon auscultation. No difficultly breathing at this time.
[2020-09-16 12:59] VITALS: BP 130/86; PULSE 88; RESP 18; TEMP 36.7; O2SAT 97
--- NOTE | 2020-09-16 13:38 | PC.NURSE ---
Lasix prescription called to [facility]
[2020-09-16 14:00] VITALS: BP 131/81; PULSE 82; RESP 18; TEMP 36.9; O2SAT 98
[2020-09-16 14:05] VITALS: BP 131/81; PULSE 82; RESP 18; TEMP 36.9; O2SAT 98
== END 2020-09-16 14:02 | disposition home or self-care (01) | DRG 785 ==
PROVIDERS: Admitting Provider Obstetrics & Gynecology; PCP Obstetrics & Gynecology; Visit Provider Obstetrics & Gynecology
PROC: 10D00Z1 Extraction of Products of Conception, Low, Open Approach (ICD-10-PCS; CPT 59514; principal; 2020-09-14 06:30)
DX: O10.02 Pre-existing essential hypertension complicating childbirth (principal); O34.211 Maternal care for low transverse scar from previous cesarean delivery; Z3A.37 37 weeks gestation of pregnancy; Z37.0 Single live birth; Z79.82 Long term (current) use of aspirin; Z86.718 Personal history of other venous thrombosis and embolism; Z30.2 Encounter for sterilization
CPT/HCPCS: 12345; 36415; 51702; 58611; 59025; 59409; 82570; 84156; 85025; 85027; 86900; 88302; 96372; 96375; 98960; J0690; J1100; J1644; J1650; J2270; J2274; J2405; J2765; J3490; J7030

== ENCOUNTER → 2023-03-04 14:31 | Outpatient (BNVA) | payer BC, SELFPAY | PROVIDERS: Visit Provider Nurse Practitioner | DX: R10.9 Unspecified abdominal pain (principal) | CPT/HCPCS: 81000 ==

== ENCOUNTER 2024-05-13 07:09 | Outpatient (CLI) | payer OTHER, SELFPAY ==
[2024-05-13 07:45] LABS: HCG Quantitative 23.35 mIU/mL
== END 2024-05-13 07:10 | disposition home or self-care (01) ==
PROVIDERS: PCP Family Medicine Adult Medicine; Visit Provider Obstetrics & Gynecology Reproductive Endocrinology
DX: Z32.02 Encounter for pregnancy test, result negative (principal)
CPT/HCPCS: 36415; 84702

== ENCOUNTER 2024-05-15 07:00 | Outpatient (CLI) | payer OTHER, SELFPAY | END 2024-05-15 07:01 | disposition home or self-care (01) | PROVIDERS: PCP Family Medicine Adult Medicine; Visit Provider Obstetrics & Gynecology Reproductive Endocrinology | DX: Z01.89 Encounter for other specified special examinations (principal) | CPT/HCPCS: 36415; 84702 ==

== ENCOUNTER 2024-05-25 10:47 | Outpatient (CLI) | payer OTHER, SELFPAY | END 2024-05-25 10:48 | disposition home or self-care (01) | PROVIDERS: PCP Family Medicine Adult Medicine; Visit Provider Obstetrics & Gynecology Reproductive Endocrinology | DX: Z32.01 Encounter for pregnancy test, result positive (principal) | CPT/HCPCS: 36415; 84702 ==

== ENCOUNTER → 2024-06-18 10:34 | Outpatient (BNVA) | payer OTHER, SELFPAY | PROVIDERS: PCP Family Medicine Adult Medicine; Visit Provider Nurse Practitioner Women's Health | DX: Z32.01 Encounter for pregnancy test, result positive (principal); N92.6 Irregular menstruation, unspecified | CPT/HCPCS: 81025; 84702; 86850; 86900 ==

== ENCOUNTER → 2024-06-22 09:21 | Outpatient (BNVA) | payer OTHER, SELFPAY | PROVIDERS: PCP Family Medicine Adult Medicine; Visit Provider Obstetrics & Gynecology | DX: Z34.90 Encounter for supervision of normal pregnancy, unspecified, unspecified trimester (principal) | CPT/HCPCS: 81000 ==

== ENCOUNTER 2024-07-04 05:03 | Emergency (ER) | payer OTHER, SELFPAY ==
[2024-07-04 05:09] VITALS: BP 163/100; PULSE 78; RESP 20; TEMP 37.1; O2SAT 100; BMI 26.5
--- NOTE | 2024-07-04 05:18 | ED_ITS ---
Documented by User: Vignesh Waters DO 07/04/24 05:29 HPI - Headache 2 General: Chief Complaint: Nausea/Vomiting/Diarrhea Stated Complaint: 11 Weeks Preg\Morning Sickness\Migraine Time Seen by Provider: 07/04/24 05:12 History of Present Illness: Patient presents to the ER with complaints of a migraine along with severe nausea vomiting. Patient is approximately 8 weeks . This has happened with all of her other pregnancies. Patient takes Reglan, Zofran, promethazine, Imitrex at home but she has not been able to keep any of these down. She states this is her normal migraine she gets and she just cannot keep her medicine down. She did call Dr. Alvarez's office and they told her to come here for treatment. Related Data Home Medications Medication Instructions Recorded Confirmed progesterone 50 mg/mL 5 mg IM DAILY 06/18/24 06/22/24 intramuscular oil progesterone micronized 100 mg 1 insert vaginal BID 06/18/24 06/22/24 vaginal insert Previous Rx's Medication Instructions Recorded sumatriptan succinate 100 mg 100 mg PO Q2H PRN migraine 04/15/24 tablet (Imitrex) headache 30 days #15 tabs metoclopramide HCl 5 mg tablet 5 mg PO DAILY #30 tabs 06/18/24 (Reglan) ondansetron 4 mg disintegrating See Rx Instructions .Route 06/30/24 tablet .COMPLEX #30 tabs doxylamine 10 mg-pyridoxine (vit 1 tab PO BID #60 tabs 07/04/24 B6) 10 mg tablet,delayed release (Diclegis) nifedipine 30 mg tablet,extended 30 mg PO BID #30 tabs 07/04/24 release Allergies Allergy/AdvReac Type Severity Reaction Status Date / Time levofloxacin [From Levaquin] Allergy Mild Hives Verified 06/22/24 08:14 Penicillins Allergy Mild Hives Verified 06/22/24 08:14 Review of Systems 2 General: Reports: 10 or more systems reviewed and unremarkable except in HPI and below PFSH ED 2 PFSH: Medical History Allergic rhinitis due to allergen Factitious disorder Dx in 2003 Migraines No pertinent past medical history Denies asthma, seizures, PE, diabetes. PCP: Dr. Boo H/O deep venous thrombosis She states that in March 2016 she had a DVT in her left calf while undergoing her first cycle of IVF with hormones and was told that the DVT was due to hormones Hypertension Reports that she had preeclampsia and developed congestive heart failure in the time. She states that she was on a lot of blood pressure medications at that time and was able to wean off of this and is just on hydrochlorothiazide at this time. She has not really been monitoring her blood pressures prior to finding out she was . -EKG done on 03/17/2020 showed sinus rhythm Surgical History S/P tubal ligation (09/14/20) Total salpingectomy (repeat sterilization). [place] [facility] [place] -Pathology showed no histological changes S/P repeat low transverse (09/14/20) With repeat tubal ligation. [place]. B[place]t [place] [facility] [place]. H/O section (~2016) delivery performed in 2017 delivery of triplets. Surgery performed in [facility]-operative reports were received on 06/02/2020 and scanned- low transverse delivery via Pfannenstiel incision, 2 layer closure without any extensions. History of incision and drainage (08/29/16) 08/29/16--scalp H/O laparoscopy (~03/2014) 03/2014--Diagnostic laparoscopy done for pelvic pain by Dr. Topete. Adhesions were taken down. H/O laparoscopy (10/06/08) 10/06/2008--[place] Rj Ha [place] [facility] [place] -Return for left ovarian cyst and pelvic pain. During laparoscopy patient was noted to have omental adhesions adherent to the left pelvic sidewall down underneath the left ovary also indications of the left fallopian tube to the ovary. Uterus was normal and appendix was normal as well. Operative report has been scanned. H/O dilation and curettage 2003-Performed at [facility] [place] 03/19/09-suction dilation and curettage done for incomplete Per[place] Dr Rj Ha at [facility] [place]. History of cholecystectomy (~2004) 2004- Performed at [facility] [place]. she states that her gallbladder was first removed and that she had gallstones into the bile duct she was then transferred to [place] with a second surgery was performed to remove the gallstones from the bile duct. H/O tubal ligation (05/31/10) 05/31/2010--done --Bilateral partial salpingectomy Per[place] Dr Ha at [facility] [place] History of reversal of tubal ligation (~07/2015) 07/2015 laparotomy with reanastomosis of fallopian tubes. Right and left ampullary infundibular anastomosis was done Performed by Dr Rosio Bishop in [facility]. Family History Father Heart disease Hypertension Mother Hypertension Diabetes Hyperlipidemia Family/Other Breast cancer Maternal aunt, diagnosed at age 40 Sister Breast cancer diagnosed at age 40 Heart disease 2 sisters Grandmother Suicide patnernal Denies family history of Colon cancer Ovarian cancer Uterine cancer Social History Smoking and tobacco/nicotine status: never used tobacco/nicotine Alcohol intake: never Substance/Drug Use: never Physical Exam 2 Const: COMMON NORMALS: no acute distress, average body habitus, patient oriented x3, no limitations, healthy appearing, alert and well nourished HENMT: COMMON NORMALS: normocephalic, atraumatic, hearing grossly normal bilaterally, external ears normal, Normal external nose present and moist oral mucous membranes HEAD & SCALP: normocephalic and atraumatic NOSE: Normal external nose present EXTERNAL EAR: Yes external ears normal Neck/C-Spine: COMMON NORMALS: no JVD Chest: COMMONS NORMALS: normal inspection of the chest and normal palpation of entire chest wall Resp: COMMON NORMALS: normal respiratory effort, No retractions, No use of accessory muscles and clear to auscultation bilaterally AUSCULTATION: clear to auscultation bilaterally Cardio: COMMON NORMALS: no JVD, regular rate, regular rhythm, S1 normal heart sound present, S2 normal heart sound present, No gallops present (Cardio), No clicks present (Cardio), No murmurs present (Cardio) and No rub (Cardio) R ATE: regular rate RHYTHM: regular rhythm HEART SOUNDS: S1 normal heart sound present and S2 normal heart sound present GI: COMMON NORMALS: Normal to inspection, nondistended, normoactive bowel sounds present, Soft to palpation, non-tender, No hepatosplenomegaly present and no masses PALPATION: Yes Soft to palpation and Yes No hepatosplenomegaly present Neuro: COMMON NORMALS: patient oriented x3 SENSORIUM/ORIENTATION: Yes alert Course 2 Vital Signs: Vital signs: Vital Signs Temperature 98.7 F 07/04/24 05:09 Pulse Rate 64 07/04/24 08:56 Respiratory Rate 20 H 07/04/24 05:09 Blood Pressure 152/91 07/04/24 08:56 Pulse Oximetry 99 07/04/24 08:56 Oxygen Delivery Me thod Room Air 07/04/24 07:30 MDM - Headache Differential Diagnosis Likely migraine Medical Records I reviewed the patient's medical records. Lab Data I reviewed the patient's lab results. 07/04/24 05:37 07/04/24 05:37 Laboratory Results WBC 4.53 10^3/uL (3.29-11.43) 07/04/24 05:37 RBC 4.80 10^6/uL (3.85-5.65) 07/04/24 05:37 Hgb 12.40 g/dL (11.27-16.99) 07/04/24 05:37 Hct 38.5 % (36-47) 07/04/24 05:37 MCV 80.2 fl (85-98) L 07/04/24 05:37 MCH 25.8 pg (27-33) L 07/04/24 05:37 MCHC 32.2 g/dL (30-55) 07/04/24 05:37 RDW 16.1 % (12.1-15.1) H 07/04/24 05:37 Plt Count 221 10^3/cmm (157-399) 07/04/24 05:37 MPV 11.8 fL (7.4-10.4) H 07/04/24 05:37 Neut % (Auto) 62.7 % 07/04/24 05:37 Lymph % (Auto) 25.6 % 07/04/24 05:37 Dawes % (Auto) 9.3 % 07/04/24 05:37 Eos % (Auto) 1.8 % 07/04/24 05:37 Baso % (Auto) 0.4 % 07/04/24 05:37 Neut # (Auto) 2.84 10^3/uL (1.8-7.7) 07/04/24 05:37 Lymph # (Auto) 1.2 10^3/uL (0.8-4.8) 07/04/24 05:37 Dawes # (Auto) 0.4 10^3/uL (0.2-0.9) 07/04/24 05:37 Eos # (Auto) 0.1 10^3/uL (0.0-0.8) 07/04/24 05:37 Baso # (Auto) 0.0 10^3/uL (0.0-0.1) 07/04/24 05:37 Nucleated RBC % (auto) 0 % 07/04/24 05:37 Nucleated RBCs # 0.0 /100WBC 07/04/24 05:37 Sodium 136 mmol/L (136-145) 07/04/24 05:37 Potassium 3.7 mmol/L (3.5-5.1) 07/04/24 05:37 Chloride 102 mmol/L (98-107) 07/04/24 05:37 Carbon Dioxide 22 mmol/L (22-29) 07/04/24 05:37 Anion Gap 15.7 (5-19) 07/04/24 05:37 BUN 5 mg/dL (6-20) L 07/04/24 05:37 Creatinine 0.5 mg/dL (0.5-0.9) 07/04/24 05:37 GFR Calculation 137.4 mL/min (90-130) H 07/04/24 05:37 Glucose 108 mg/dL (65-115) 07/04/24 05:37 Calculated Osmolality 280 mOsm/kg (285-295) L 07/04/24 05:37 Calcium 9.0 mg/dL (8.5-10.5) 07/04/24 05:37 Magnesium 1.7 mg/dL (1.7-2.3) 07/04/24 05:37 Total Bilirubin 0.6 mg/dL (0.15-1.2) 07/04/24 05:37 AST 11 U/L (0-32) 07/04/24 05:37 ALT 7 U/L (0-33) 07/04/24 05:37 Alkaline Phosphatase 53 U/L (35-105) 07/04/24 05:37 Total Protein 7.1 g/dL (6.6-8.7) 07/04/24 05:37 Albumin 4.2 g/dL (3.5-5.2) 07/04/24 05:37 Globulin 2.9 g/dL (1.3-4.6) 07/04/24 05:37 Urine Color Yellow (Yellow) 07/04/24 06:58 Urine Appearance Clear (CLEAR) 07/04/24 06:58 Urine pH 7.0 (5-7) 07/04/24 06:58 Ur Specific [place] 1.004 (1.005-1.030) L 07/04/24 06:58 Urine Protein Negative (Negative) 07/04/24 06:58 Urine Glucose (UA) Negative (Normal) 07/04/24 06:58 Urine Ketones Negative (Negative) 07/04/24 06:58 Urine Blood 2+ (Negative) A 07/04/24 06:58 Urine Nitrate Negative (Negative) 07/04/24 06:58 Urine Bilirubin Negative (Negative) 07/04/24 06:58 Urine Urobilinogen 1.0 mg/dL (Negative) 07/04/24 06:58 Ur Leukocyte Esterase Trace (Negative) A 07/04/24 06:58 Urine RBC 3-5 /hpf (0-2) 07/04/24 06:58 Urine WBC 0-5 /hpf (0-5) 07/04/24 06:58 Ur Squamous Epith Cells 0-5 /hpf (0-5) 07/04/24 06:58 Amorphous Sediment Not Reportable 07/04/24 06:58 Urine Bacteria None seen /hpf (NONE) 07/04/24 06:58 Hyaline Casts 0-4 /lpf H 07/04/24 06:58 Ur Random Microalbumin 1 ug/dL (0-20) 07/04/24 06:58 Urine Creatinine 28 mg/dL (28-217) 07/04/24 06:58 Microalb/Creat Ratio 36 mg/dL (0-20) H 07/04/24 06:58 No radiology studies performed this visit Discharge Plan Discharge Patient Disposition: Home Clinical Impression: Nausea and vomiting during , History of congestive heart failure Hypertension Qualifiers: Hypertension type: secondary to endocrine disorders Qualified Code(s): I15.2 - Hypertension secondary to endocrine disorders Migraines Qualifiers: Migraine type: migraine (< 15 days per month) with aura Status migrainosus presence: without status migrainosus Intractability: not intractable Qualified Code(s): G43.109 - Migraine with aura, not intractable, without status migrainosus Condition: Stable Prescriptions: New Diclegis 10-10 mg tablet,delayed release (DR/EC) 1 tab PO BID Qty: 60 0RF nifedipine 30 mg tablet extended release 30 mg PO BID Qty: 30 0RF No Action sumatriptan succinate [Imitrex] 100 mg tablet 100 mg PO Q2H PRN (Reason: migraine headache) 30 Days Qty: 15 3RF Rx Instructions: do not exceed 2 doses per 24 hrs progesterone 50 mg/mL oil 5 mg IM DAILY progesterone micronized 100 mg insert 1 insert vaginal BID metoclopramide HCl [Reglan] 5 mg tablet 5 mg PO DAILY Qty: 30 3RF ondansetron 4 mg tablet,disintegrating See Rx Instructions .ROUTE .COMPLEX Qty: 30 1RF Dose Instruction: DISSOLVE ONE TABLET BY MOUTH EVERY 8 HOURS NEEDED FOR NAUSEA AND VOMITING Rx Instructions: DISSOLVE ONE TABLET BY MOUTH EVERY 8 HOURS NEEDED FOR NAUSEA AND VOMITING Discharge Orders: Discharge ED (Routine); Ordered 07/04/24 Ordered By: Ramon Painter Referrals: Easton Alcaraz MD [Primary Care Provider] - Discharge Diet: Advance as tolerated Discharge Activity: Increase activity as tolerated Patient Instructions: Opioid Safety, Pain Management Activity Restrictions/Additional Instructions: Thank you for choosing [facility] for your healthcare needs today. It is very important that you follow up as instructed or that you return to the Emergency Department should you have concerns or if your condition changes or worsens in any way. You were seen today for headache and elevated blood pressure. Your blood pressure did improve slightly. You do have a slight amount of protein in your urine. We reviewed your case with the on-call baker doughnut. They recommend starting nifedipine extended release 30 mg twice a day for your blood pressure and adding Diclegis 1 tablet twice a day for the persistent nausea and vomiting. You should follow-up with your primary baker doughnut in 2 days. Sign Out Sign Out Data: Patient Sign Out occurred on 07/04/24 at 06:02. Patient's care was discussed, and care was transferred from Vignesh Waters DO to Ramon Painter DO. Coding Level of Care Code ED Class A Truck Driver for Chg Fwd Documented by User: Ramon Painter DO 07/04/24 11:21 HPI - Headache 2 General: Chief Complaint: Nausea/Vomiting/Diarrhea Stated Complaint: 11 Weeks Preg\Morning Sickness\Migraine Time Seen by Provider: 07/04/24 05:12 History of Present Illness: 38-year-old female patient presents to [facility] ER with complaints of a migraine along with severe nausea vomiting. Patient is approximately 8 weeks . This has happened with all of her other pregnancies. Patient takes Reglan, Zofran, promethazine, Imitrex at home but she has not been able to keep any of these down. She states this is her normal migraine she gets and she just cannot keep her medicine down. She did call Dr. Alvarez's office and they told her to come here for treatment. Related Data Home Medications Medication Instructions Recorded Confirmed progesterone 50 mg/mL 5 mg IM DAILY 06/18/24 06/22/24 intramuscular oil progesterone micronized 100 mg 1 insert vaginal BID 06/18/24 06/22/24 vaginal insert Previous Rx's Medication Instructions Recorded sumatriptan succinate 100 mg 100 mg PO Q2H PRN migraine 04/15/24 tablet (Imitrex) headache 30 days #15 tabs metoclopramide HCl 5 mg tablet 5 mg PO DAILY #30 tabs 06/18/24 (Reglan) ondansetron 4 mg disintegrating See Rx Instructions .Route 06/30/24 tablet .COMPLEX #30 tabs doxylamine 10 mg-pyridoxine (vit 1 tab PO BID #60 tabs 07/04/24 B6) 10 mg tablet,delayed release (Diclegis) nifedipine 30 mg tablet,extended 30 mg PO BID #30 tabs 07/04/24 release Allergies Allergy/AdvReac Type Severity Reaction Status Date / Time levofloxacin [From Levaquin] Allergy Mild Hives Verified 06/22/24 08:14 Penicillins Allergy Mild Hives Verified 06/22/24 08:14 PFSH ED 2 PFSH: Medical History Allergic rhinitis due to allergen Factitious disorder Dx in 2003 Migraines No pertinent past medical history Denies asthma, seizures, PE, diabetes. PCP: Dr. Boo H/O deep venous thrombosis She states that in March 2016 she had a DVT in her left calf while undergoing her first cycle of IVF with hormones and was told that the DVT was due to hormones Hypertension Reports that she had preeclampsia and developed congestive heart failure in the time. She states that she was on a lot of blood pressure medications at that time and was able to wean off of this and is just on hydrochlorothiazide at this time. She has not really been monitoring her blood pressures prior to finding out she was . -EKG done on 03/17/2020 showed sinus rhythm Surgical History S/P tubal ligation (09/14/20) Total salpingectomy (repeat sterilization). [place] [facility] [place]. -Pathology showed no histological changes S/P repeat low transverse (09/14/20) With repeat tubal ligation. [place]. Bhatt [place] [facility] [place]. H/O section (~2016) delivery performed in 2017 delivery of triplets. Surgery performed in [facility]-operative reports were received on 06/02/2020 and scanned- low transverse delivery via Pfannenstiel incision, 2 layer closure without any extensions. History of incision and drainage (08/29/16) 08/29/16--scalp H/O laparoscopy (~03/2014) 03/2014--Diagnostic laparoscopy done for pelvic pain by Dr. Topete. Adhesions were taken down. H/O laparoscopy (10/06/08) 10/06/2008--Per[place] Rj Ha [place] [facility] [place] -Return for left ovarian cyst and pelvic pain. During laparoscopy patient was noted to have omental adhesions adherent to the left pelvic sidewall down underneath the left ovary also indications of the left fallopian tube to the ovary. Uterus was normal and appendix was normal as well. Operative report has been scanned. H/O dilation and curettage 2003-Performed at [facility] [place] 03/19/09-suction dilation and curettage done for incomplete Per[place] by Dr Rj Ha at [facility] [place]. History of cholecystectomy (~2004) 2004- Performed at [facility] [place]. she states that her gallbladder was first removed and that she had gallstones into the bile duct she was then transferred to [place] with a second surgery was performed to remove the gallstones from the bile duct. H/O tubal ligation (05/31/10) 05/31/2010--done --Bilateral partial salpingectomy Per[place] Dr Ha at [facility] [place] History of reversal of tubal ligation (~07/2015) 07/2015 laparotomy with reanastomosis of fallopian tubes. Right and left ampullary infundibular anastomosis was done Performed by Dr Rosio Bishop in [facility]. Family History Father Heart disease Hypertension Mother Hypertension Diabetes Hyperlipidemia Family/Other Breast cancer Maternal aunt, diagnosed at age 40 Sister Breast cancer diagnosed at age 40 Heart disease 2 sisters Grandmother Suicide patnernal Denies family history of Colon cancer Ovarian cancer Uterine cancer Social History Smoking and tobacco/nicotine status: never used tobacco/nicotine Alcohol intake: never Substance/Drug Use: never Course 2 Vital Signs: Vital signs: Vital Signs Temperature 98.7 F 07/04/24 05:09 Pulse Rate 64 07/04/24 08:56 Respiratory Rate 20 H 07/04/24 05:09 Blood Pressure 152/91 07/04/24 08:56 Pulse Oximetry 99 07/04/24 08:56 Oxygen Delivery Me thod Room Air 07/04/24 07:30 MDM - Headache Medical Decision Making Care assumed at change of shift labs reviewed. Chart reviewed patient has extensive OB history is lasted. Her last OB note was reviewed she is approximately 11 weeks and a few days she is by IVF she previously did have severe preeclampsia as well as some hypertension issues. She has some mild elevation of her microalbumin creatinine ratio. Discussed with on-call OB they recommend starting on antihypertensives initially Dr. Brower did recommend labetalol however we gave her nifedipine because her heart rate is already in the 60s and is not think she would tolerate the labetalol well. Also gave her diplegia's for the recurrent nausea and vomiting. Some this may be related to the migraines migraines may have a return of blood pressure blood pressure. We asked her to call and make an appointment Dr. Alvarez's office in 2 days on Saturday. Return if she has further problems. Lab Data 07/04/24 05:37 07/04/24 05:37 Laboratory Results WBC 4.53 10^3/uL (3.29-11.43) 07/04/24 05:37 RBC 4.80 10^6/uL (3.85-5.65) 07/04/24 05:37 Hgb 12.40 g/dL (11.27-16.99) 07/04/24 05:37 Hct 38.5 % (36-47) 07/04/24 05:37 MCV 80.2 fl (85-98) L 07/04/24 05:37 MCH 25.8 pg (27-33) L 07/04/24 05:37 MCHC 32.2 g/dL (30-55) 07/04/24 05:37 RDW 16.1 % (12.1-15.1) H 07/04/24 05:37 Plt Count 221 10^3/cmm (157-399) 07/04/24 05:37 MPV 11.8 fL (7.4-10.4) H 07/04/24 05:37 Neut % (Auto) 62.7 % 07/04/24 05:37 Lymph % (Auto) 25.6 % 07/04/24 05:37 Dawes % (Auto) 9.3 % 07/04/24 05:37 Eos % (Auto) 1.8 % 07/04/24 05:37 Baso % (Auto) 0.4 % 07/04/24 05:37 Neut # (Auto) 2.84 10^3/uL (1.8-7.7) 07/04/24 05:37 Lymph # (Auto) 1.2 10^3/uL (0.8-4.8) 07/04/24 05:37 Dawes # (Auto) 0.4 10^3/uL (0.2-0.9) 07/04/24 05:37 Eos # (Auto) 0.1 10^3/uL (0.0-0.8) 07/04/24 05:37 Baso # (Auto) 0.0 10^3/uL (0.0-0.1) 07/04/24 05:37 Nucleated RBC % (auto) 0 % 07/04/24 05:37 Nucleated RBCs # 0.0 /100WBC 07/04/24 05:37 Sodium 136 mmol/L (136-145) 07/04/24 05:37 Potassium 3.7 mmol/L (3.5-5.1) 07/04/24 05:37 Chloride 102 mmol/L (98-107) 07/04/24 05:37 Carbon Dioxide 22 mmol/L (22-29) 07/04/24 05:37 Anion Gap 15.7 (5-19) 07/04/24 05:37 BUN 5 mg/dL (6-20) L 07/04/24 05:37 Creatinine 0.5 mg/dL (0.5-0.9) 07/04/24 05:37 GFR Calculation 137.4 mL/min (90-130) H 07/04/24 05:37 Glucose 108 mg/dL (65-115) 07/04/24 05:37 Calculated Osmolality 280 mOsm/kg (285-295) L 07/04/24 05:37 Calcium 9.0 mg/dL (8.5-10.5) 07/04/24 05:37 Magnesium 1.7 mg/dL (1.7-2.3) 07/04/24 05:37 Total Bilirubin 0.6 mg/dL (0.15-1.2) 07/04/24 05:37 AST 11 U/L (0-32) 07/04/24 05:37 ALT 7 U/L (0-33) 07/04/24 05:37 Alkaline Phosphatase 53 U/L (35-105) 07/04/24 05:37 Total Protein 7.1 g/dL (6.6-8.7) 07/04/24 05:37 Albumin 4.2 g/dL (3.5-5.2) 07/04/24 05:37 Globulin 2.9 g/dL (1.3-4.6) 07/04/24 05:37 Urine Color Yellow (Yellow) 07/04/24 06:58 Urine Appearance Clear (CLEAR) 07/04/24 06:58 Urine pH 7.0 (5-7) 07/04/24 06:58 Ur Specific [place] 1.004 (1.005-1.030) L 07/04/24 06:58 Urine Protein Negative (Negative) 07/04/24 06:58 Urine Glucose (UA) Negative (Normal) 07/04/24 06:58 Urine Ketones Negative (Negative) 07/04/24 06:58 Urine Blood 2+ (Negative) A 07/04/24 06:58 Urine Nitrate Negative (Negative) 07/04/24 06:58 Urine Bilirubin Negative (Negative) 07/04/24 06:58 Urine Urobilinogen 1.0 mg/dL (Negative) 07/04/24 06:58 Ur Leukocyte Esterase Trace (Negative) A 07/04/24 06:58 Urine RBC 3-5 /hpf (0-2) 07/04/24 06:58 Urine WBC 0-5 /hpf (0-5) 07/04/24 06:58 Ur Squamous Epith Cells 0-5 /hpf (0-5) 07/04/24 06:58 Amorphous Sediment Not Reportable 07/04/24 06:58 Urine Bacteria None seen /hpf (NONE) 07/04/24 06:58 Hyaline Casts 0-4 /lpf H 07/04/24 06:58 Ur Random Microalbumin 1 ug/dL (0-20) 07/04/24 06:58 Urine Creatinine 28 mg/dL (28-217) 07/04/24 06:58 Microalb/Creat Ratio 36 mg/dL (0-20) H 07/04/24 06:58 Discharge Plan Discharge Patient Disposition: Home Clinical Impression: Nausea and vomiting during , History of congestive heart failure Hypertension Qualifiers: Hypertension type: secondary to endocrine disorders Qualified Code(s): I15.2 - Hypertension secondary to endocrine disorders Migraines Qualifiers: Migraine type: migraine (< 15 days per month) with aura Status migrainosus presence: without status migrainosus Intractability: not intractable Qualified Code(s): G43.109 - Migraine with aura, not intractable, without status migrainosus Condition: Stable Prescriptions: New Diclegis 10-10 mg tablet,delayed release (DR/EC) 1 tab PO BID Qty: 60 0RF nifedipine 30 mg tablet extended release 30 mg PO BID Qty: 30 0RF No Action sumatriptan succinate [Imitrex] 100 mg tablet 100 mg PO Q2H PRN (Reason: migraine headache) 30 Days Qty: 15 3RF Rx Instructions: do not exceed 2 doses per 24 hrs progesterone 50 mg/mL oil 5 mg IM DAILY progesterone micronized 100 mg insert 1 insert vaginal BID metoclopramide HCl [Reglan] 5 mg tablet 5 mg PO DAILY Qty: 30 3RF ondansetron 4 mg tablet,disintegrating See Rx Instructions .ROUTE .COMPLEX Qty: 30 1RF Dose Instruction: DISSOLVE ONE TABLET BY MOUTH EVERY 8 HOURS NEEDED FOR NAUSEA AND VOMITING Rx Instructions: DISSOLVE ONE TABLET BY MOUTH EVERY 8 HOURS NEEDED FOR NAUSEA AND VOMITING Discharge Orders: Discharge ED (Routine); Ordered 07/04/24 Ordered By: Ramon Painter Referrals: Easton Alcaraz MD [Primary Care Provider] - Discharge Diet: Advance as tolerated Discharge Activity: Increase activity as tolerated Patient Instructions: Opioid Safety, Pain Management Activity Restrictions/Additional Instructions: Thank you for choosing [facility] for your healthcare needs today. It is very important that you follow up as instructed or that you return to the Emergency Department should you have concerns or if your condition changes or worsens in any way. You were seen today for headache and elevated blood pressure. Your blood pressure did improve slightly. You do have a slight amount of protein in your urine. We reviewed your case with the on-call baker doughnut. They recommend starting nifedipine extended release 30 mg twice a day for your blood pressure and adding Diclegis 1 tablet twice a day for the persistent nausea and vomiting. You should follow-up with your primary baker doughnut in 2 days. Sign Out Sign Out Data: Patient Sign Out occurred on 07/04/24 at 06:02. Patient's care was discussed, and care was transferred from Vignesh Waters DO to Ramon Painter DO. Coding Level of Care Code ED Class A Truck Driver for Brodie Enamorado
[2024-07-04 05:43] LABS: Basophils % 0.4 %; Eosinophils # 0.1 10^3/uL (0.0-0.8); Eosinophils % 1.8 %; Hematocrit 38.5 % (36-47); Lymphocytes # 1.2 10^3/uL (0.8-4.8); Lymphocytes % 25.6 %; Mean Corpuscular HGB Conc 32.2 g/dL (30-55); Mean Corpuscular Hemoglobin 25.8 pg (27-33); Mean Corpuscular Volume 80.2 fl (85-98); Mean Platelet Volume 11.8 fL (7.4-10.4); Monocytes # 0.4 10^3/uL (0.2-0.9); Monocytes % 9.3 %; Neutrophils # 2.84 10^3/uL (1.8-7.7); Neutrophils % 62.7 %; Nucleated Red Blood Cells % 0 %; Platelet Count 221 10^3/cmm (157-399); Red Cell Distribution Width 16.1 % (12.1-15.1); White Blood Count 4.53 10^3/uL (3.29-11.43)
[2024-07-04] MEDS: diphenhydrAMINE 50 mg/mL SDV 1mL IVP (05:43)
[2024-07-04] MEDS: metoclopramide 5 mg/mL SDV 2 mL 10 MG IVP (05:45)
[2024-07-04] MEDS: sodium chloride 0.9% 1,000 ML 999 ML IV (05:50)
[2024-07-04] MEDS: SUMAtriptan 6 mg/0.5 mL SDV SUBCUT (05:58)
[2024-07-04 06:00] LABS: Alanine Aminotransferase 7 U/L (0-33); Albumin Level 4.2 g/dL (3.5-5.2); Alkaline Phosphatase 53 U/L (35-105); Anion Gap 15.7 (5-19); Aspartate Amino Transferase 11 U/L (0-32); Blood Urea Nitrogen 5 mg/dL (6-20); Carbon Dioxide 22 mmol/L (22-29); Chloride 102 mmol/L (98-107); Creatinine Clr Calc Pharmacy 139.8773; Globulin 2.9 g/dL (1.3-4.6); Glomerular Filtration Rate 137.4 mL/min (90-130); Glucose 108 mg/dL (65-115); Magnesium 1.7 mg/dL (1.7-2.3); Osmolality Calculated 280 mOsm/kg (285-295); Potassium 3.7 mmol/L (3.5-5.1); Sodium 136 mmol/L (136-145); Total Bilirubin 0.6 mg/dL (0.15-1.2); Total Protein 7.1 g/dL (6.6-8.7)
[2024-07-04 06:04] VITALS: BP 137/90; PULSE 68; O2SAT 100
[2024-07-04 07:16] LABS: Charge for UA Resulting for Rev
[2024-07-04 07:30] VITALS: PULSE 64; O2SAT 99
[2024-07-04 07:48] LABS: Creatinine Urine, Random 28 mg/dL (28-217); Microalbum Creatinine Ratio Ur 36 mg/dL (0-20); Microalbumin Random Urine 1 ug/dL (0-20)
[2024-07-04 08:18] LABS: Bilirubin Urine Negative (Negative); Blood Urine 2+ (Negative); Glucose Urine UA Negative (Normal); Ketones Urine Negative (Negative); Leukocyte Esterase Urine Trace (Negative); Nitrate Urine Negative (Negative); Protein Urine Negative (Negative); Specific Gravity, Urine 1.004 (1.005-1.030); Urine Appearance Clear (CLEAR); Urine Color Yellow (Yellow)
[2024-07-04 08:20] LABS: Bacteria Urine None Seen /hpf; Hyaline Casts Urine 0-4 /lpf; Squamous Epithelial Cell Urine 0-5 /hpf (0-5); WBC Urine 0-5 /hpf (0-5)
[2024-07-04 08:56] VITALS: BP 152/91; PULSE 64; O2SAT 99
== END 2024-07-04 08:58 | disposition home or self-care (01) ==
PROVIDERS: Emergency Medicine; Emergency Provider Family Medicine; PCP Family Medicine Adult Medicine
DX: O21.8 Other vomiting complicating pregnancy (principal); O13.1 Gestational [pregnancy-induced] hypertension without significant proteinuria, first trimester; Z3A.08 8 weeks gestation of pregnancy; O26.891 Other specified pregnancy related conditions, first trimester; G43.109 Migraine with aura, not intractable, without status migrainosus
CPT/HCPCS: 80053; 81003; 81015; 82044; 83735; 85025; 96372; 96374; 96375; 99284; J1200; J2765; J3030; J7030

== ENCOUNTER → 2024-07-21 10:14 | Outpatient (BNVA) | payer OTHER, SELFPAY | PROVIDERS: PCP Family Medicine Adult Medicine; Visit Provider Nurse Practitioner Women's Health | DX: Z36.9 Encounter for antenatal screening, unspecified (principal); N88.8 Other specified noninflammatory disorders of cervix uteri | CPT/HCPCS: 76815; 80307; 82950; 84315; 84443; 86592; 86803; 87086; 87340; 87491; 87591 ==

== ENCOUNTER → 2024-08-11 08:22 | Outpatient (BNVA) | payer OTHER, SELFPAY | PROVIDERS: PCP Family Medicine Adult Medicine; Visit Provider Nurse Practitioner Women's Health | DX: Z34.90 Encounter for supervision of normal pregnancy, unspecified, unspecified trimester (principal); R82.71 Bacteriuria | CPT/HCPCS: 84315; 87086 ==

== ENCOUNTER → 2024-09-07 09:23 | Outpatient (BNVA) | payer OTHER, SELFPAY | PROVIDERS: PCP Family Medicine Adult Medicine; Visit Provider Obstetrics & Gynecology | DX: Z36.9 Encounter for antenatal screening, unspecified (principal) | CPT/HCPCS: 76816 ==

== ENCOUNTER → 2024-09-14 15:22 | Outpatient (BNVA) | payer OTHER, SELFPAY | PROVIDERS: PCP Family Medicine Adult Medicine; Visit Provider Obstetrics & Gynecology | DX: Z01.419 Encounter for gynecological examination (general) (routine) without abnormal findings (principal); O09.299 Supervision of pregnancy with other poor reproductive or obstetric history, unspecified trimester; Z86.32 Personal history of gestational diabetes | CPT/HCPCS: 84315; 87624 ==

== ENCOUNTER → 2024-09-18 10:35 | Outpatient (BNVA) | payer OTHER, SELFPAY | PROVIDERS: PCP Family Medicine Adult Medicine; Visit Provider Emergency Medicine | DX: J02.9 Acute pharyngitis, unspecified (principal); R05.9 Cough, unspecified | CPT/HCPCS: 87071; 87426; 87880 ==

== ENCOUNTER → 2024-12-07 10:41 | Outpatient (BNVA) | payer OTHER, SELFPAY | PROVIDERS: PCP Family Medicine Adult Medicine; Visit Provider Obstetrics & Gynecology | DX: O09.299 Supervision of pregnancy with other poor reproductive or obstetric history, unspecified trimester (principal); Z86.32 Personal history of gestational diabetes | CPT/HCPCS: 84315 ==

== ENCOUNTER 2024-12-19 13:49 | Outpatient (CLI) | payer OTHER, MEDICAID, SELFPAY ==
[2024-12-19 14:11] VITALS: BP 121/78; PULSE 95
[2024-12-19 14:14] VITALS: TEMP 35.8
[2024-12-19 14:30] VITALS: BP 121/84; PULSE 93
[2024-12-19 14:45] VITALS: BP 124/82; PULSE 89
[2024-12-19 15:00] VITALS: BP 136/86; PULSE 91
[2024-12-19 15:40] VITALS: BP 136/86; PULSE 91; O2SAT 98
== END 2024-12-19 15:28 | disposition home or self-care (01) ==
LOC: OPOB 13:59 → OBGYN 14:03
PROVIDERS: PCP Family Medicine Adult Medicine; Visit Provider Obstetrics & Gynecology
DX: O16.9 Unspecified maternal hypertension, unspecified trimester (principal); Z3A.00 Weeks of gestation of pregnancy not specified
CPT/HCPCS: 59025; 99211

== ENCOUNTER 2024-12-23 15:49 | Outpatient (CLI) | payer OTHER, SELFPAY ==
[2024-12-23] VITALS (7 sets, daily range): BP systolic 124–136; BP diastolic 68–77; PULSE 84–94; RESP 17; BMI 29.9
[2024-12-23 16:27] LABS: Basophils % 0.1 %; Eosinophils % 0.3 %; Hematocrit 28.4 % (36-47); Lymphocytes # 1.1 10^3/uL (0.8-4.8); Lymphocytes % 16.2 %; Mean Corpuscular HGB Conc 29.6 g/dL (30-55); Mean Corpuscular Hemoglobin 20.5 pg (27-33); Mean Corpuscular Volume 69.4 fl (85-98); Mean Platelet Volume 12.1 fL (7.4-10.4); Monocytes # 0.5 10^3/uL (0.2-0.9); Neutrophils # 5.13 10^3/uL (1.8-7.7); Neutrophils % 76.1 %; Nucleated Red Blood Cells % 0 %; Platelet Count 233 10^3/cmm (157-399); Red Blood Count 4.09 10^6/uL (3.85-5.65); White Blood Count 6.74 10^3/uL (3.29-11.43)
[2024-12-23 16:31] LABS: Bilirubin Urine Negative (Negative); Blood Urine Negative (Negative); Glucose Urine UA Negative (Normal); Ketones Urine Negative (Negative); Leukocyte Esterase Urine Negative (Negative); Nitrate Urine Negative (Negative); Protein Urine Negative (Negative); Specific Gravity, Urine 1.004 (1.005-1.030); Urine Appearance Clear (CLEAR); Urine Color Yellow (Yellow); Urobilinogen Urine 0.2 mg/dL (Negative); pH Urine 6.5 (5-7)
[2024-12-23 16:34] LABS: Add Urine Microscopic? YES; Bacteria Urine None Seen /hpf; Hyaline Casts Urine 0-4 /lpf; RBC Urine 0-2 /hpf (0-2); Squamous Epithelial Cell Urine 0-5 /hpf (0-5); WBC Urine 0-5 /hpf (0-5)
[2024-12-23 16:43] LABS: Alanine Aminotransferase 9 U/L (0-33); Albumin Level 3.9 g/dL (3.5-5.2); Alkaline Phosphatase 142 U/L (35-105); Anion Gap 17.7 (5-19); Aspartate Amino Transferase 18 U/L (0-32); Blood Urea Nitrogen 4 mg/dL (6-20); Calcium 8.7 mg/dL (8.5-10.5); Carbon Dioxide 20 mmol/L (22-29); Chloride 104 mmol/L (98-107); Globulin 2.8 g/dL (1.3-4.6); Glomerular Filtration Rate 176.8 mL/min (90-130); Glucose 86 mg/dL (65-115); Osmolality Calculated 282 mOsm/kg (285-295); Potassium 3.7 mmol/L (3.5-5.1); Slide Review Slide Review Perform; Sodium 138 mmol/L (136-145); Total Bilirubin 0.7 mg/dL (0.15-1.2); Total Protein 6.7 g/dL (6.6-8.7); Uric Acid 2.6 mg/dL (2.4-5.7)
[2024-12-23 17:29] LABS: UPRO/UCREAT Ratio 0.16 mg/mg CR; Urine Creatinine 32 mg/dL (28-217); Urine Protein Random 5 mg/dL
== END 2024-12-23 17:40 | disposition home or self-care (01) ==
LOC: OPOB 15:50 → OBGYN 15:50
PROVIDERS: PCP Family Medicine Adult Medicine; Visit Provider Obstetrics & Gynecology
DX: O26.899 Other specified pregnancy related conditions, unspecified trimester (principal); Z3A.00 Weeks of gestation of pregnancy not specified
CPT/HCPCS: 36415; 59025; 80053; 81001; 82570; 84156; 84315; 84550; 85025; 99211

== ENCOUNTER 2024-12-25 12:50 | Outpatient (CLI) | payer OTHER, SELFPAY ==
[2024-12-25 13:00] VITALS: BP 130/77; PULSE 77
[2024-12-25 13:02] VITALS: BMI 29.8
[2024-12-25 13:15] VITALS: BP 135/77; PULSE 77
[2024-12-25 13:25] VITALS: BP 135/77; PULSE 77; RESP 17; TEMP 36.6; O2SAT 97
== END 2024-12-25 13:25 | disposition home or self-care (01) ==
LOC: OPOB 12:50 → OBGYN 12:56
PROVIDERS: PCP Family Medicine Adult Medicine; Visit Provider Obstetrics & Gynecology
DX: O16.9 Unspecified maternal hypertension, unspecified trimester (principal); Z3A.00 Weeks of gestation of pregnancy not specified
CPT/HCPCS: 59025; 99211

== ENCOUNTER 2025-01-05 11:01 | Inpatient (IN) | payer OTHER, SELFPAY ==
--- NOTE | 2025-01-04 08:49 | ANES.PREANE2 ---
Pre-Anesthetic Assessment Height/Weight: Height 1.6 m Operation Date: 01/05/25 13:20 Proposed Procedures p Section Repeat 39988, O34.219(Not Applicable) - Jose Elias Alvarez MD Familial anesthetic complications: Severe nausea and vomiting Social No alcohol and No tobacco Exam alert, oriented x 3, clear to auscultation bilaterally and regular rate & rhythm Airway Mallampati: Class II Dentition: full CV/HEM Hypertension HX CHF and blood clot from preeclampsia during a triplet . Takes lovenox prohylactically during d/t hx of blood clot- was told to stop it 24 hrs before surgery Anesthetic Plan ASA status: 2 Anesthesia: Regional (specify below) (spinal) Risk of > 500 ml blood loss (7ml/kg in children): No Medications/Allergies Home Medications ?Medication ?Instructions ?Recorded ?Confirmed ?Last Taken ?Type sumatriptan succinate 100 mg 100 mg PO Q2H PRN migraine 04/15/24 12/07/24 Unknown Rx tablet (Imitrex) headache 30 days #15 tabs doxylamine 10 mg-pyridoxine (vit 1 tab PO BID #60 tabs 07/04/24 12/19/24 Unknown Rx B6) 10 mg tablet,delayed release (Diclegis) nifedipine 30 mg tablet,extended 30 mg PO BID #30 tabs 07/04/24 12/07/24 Unknown Rx release nifedipine 30 mg tablet,extended 30 mg PO DAILY #30 tabs 07/28/24 12/19/24 12/19/24 Rx release 24 hr ondansetron 4 mg disintegrating See Rx Instructions .Route 08/13/24 12/19/24 12/19/24 Rx tablet .COMPLEX #30 ea enoxaparin 40 mg/0.4 mL 40 mg SUBCUT DAILY 09/14/24 12/19/24 12/18/24 History subcutaneous syringe (Lovenox) albuterol sulfate 90 mcg/actuation 2 puff inhalation Q6H PRN 09/23/24 12/07/24 Unknown Rx aerosol inhaler (Ventolin HFA) shortness of breath or wheezing #8.5 grams Allergies Allergy/AdvReac Type Severity Reaction Status Date / Time levofloxacin (From Levaquin) Allergy Mild Hives Verified 12/23/24 12:02 Penicillins Allergy Mild Hives Verified 12/23/24 12:02 PFSH Anesthesia Medical History Allergic rhinitis due to allergen Factitious disorder Dx in 2003 Migraines No pertinent past medical history Denies asthma, seizures, PE, diabetes. PCP: Dr. Boo H/O deep venous thrombosis She states that in March 2016 she had a DVT in her left calf while undergoing her first cycle of IVF with hormones and was told that the DVT was due to hormones Hypertension Reports that she had preeclampsia and developed congestive heart failure in the time. She states that she was on a lot of blood pressure medications at that time and was able to wean off of this and is just on hydrochlorothiazide at this time. She has not really been monitoring her blood pressures prior to finding out she was . -EKG done on 03/17/2020 showed sinus rhythm Surgical History S/P tubal ligation (09/14/20) Total salpingectomy (repeat sterilization). Performed by Dr. Bhatt at [facility] in [place], [place]. -Pathology showed no histological changes S/P repeat low transverse (09/14/20) With repeat tubal ligation. Performed by Dr. Bhatt at [facility] in [place], [place]. H/O section (~2016) delivery performed in 2017 delivery of triplets. Surgery performed in [facility]-operative reports were received on 06/02/2020 and scanned-low transverse delivery via Pfannenstiel incision, 2 layer closure without any extensions. History of incision and drainage (08/29/16) 08/29/16--scalp H/O laparoscopy (~03/2014) 03/2014--Diagnostic laparoscopy done for pelvic pain by Dr. Topete. Adhesions were taken down. H/O laparoscopy (10/06/08) 10/06/2008--Performed by Dr Rj Ha at [facility] in [place], [place] -Return for left ovarian cyst and pelvic pain. During laparoscopy patient was noted to have omental adhesions adherent to the left pelvic sidewall down underneath the left ovary also indications of the left fallopian tube to the ovary. Uterus was normal and appendix was normal as well. Operative report has been scanned. H/O dilation and curettage 2003-Performed at [facility] in [place], [place] 03/19/09-suction dilation and curettage done for incomplete Performed by Dr Rj Ha at [facility] in [place], [place]. History of cholecystectomy (~2004) 2004- Performed at [facility] in [place], [place]. she states that her gallbladder was first removed and that she had gallstones into the bile duct she was then transferred to [place] with a second surgery was performed to remove the gallstones from the bile duct. H/O tubal ligation (05/31/10) 05/31/2010--done --Bilateral partial salpingectomy Performed by Dr Ha at [facility] in [place], [place] History of reversal of tubal ligation (~07/2015) 07/2015 laparotomy with reanastomosis of fallopian tubes. Right and left ampullary infundibular anastomosis was done Performed by Dr Rosio Bihsop in [facility]. Family History Father Heart disease Hypertension Mother Hypertension Diabetes Hyperlipidemia Family/Other Breast cancer Maternal aunt, diagnosed at age 40 Sister Breast cancer diagnosed at age 40 Heart disease 2 sisters Grandmother Suicide patnernal Denies family history of Colon cancer Ovarian cancer Uterine cancer Social History Smoking and tobacco/nicotine status: never used tobacco/nicotine Alcohol intake: never Substance/Drug Use: never Data Anesthesia Cardiac Studies: Echocardiogram Ultrasound 08/10/20
[2025-01-05] VITALS (27 sets, daily range): BP systolic 110–133; BP diastolic 55–80; PULSE 54–91; RESP 14–16; TEMP 36.3–36.7; O2SAT 99–100; BMI 29.5
--- OUTSIDE RECORDS SUMMARY | 2025-01-05 11:04 | XMS_ITS | Clinical Summary ---
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 Active labetaloL (NORMODYNE) 200 mg tablet Take 100 mg by mouth 2 times daily. Active loratadine (CLARITIN) 10 mg tablet Take 10 mg by mouth daily. Active Social History Tobacco Use Types Packs/Day Years Used Date Smoking Tobacco: Never Smokeless Tobacco: Never Alcohol Use Standard Drinks/Week Comments No 0 (1 standard drink = 0.6 oz pur e alcohol) Financial Resource Strain Answer Date R ecorded How hard is it for you to pa y for the very basics like food, housing, medical care, and heating? Not hard at all 09/22/2020 Food Insecurity Answer Date Recorded Within the past 12 months, y ou worried that your food would run out before you got the money to buy more. Never true 09/22/20 20 Within the past 12 months, t he food you bought just didn't last and you didn't have money to get more. Never true 09/22/2020 Transportation Needs Answer Date Record ed In the past 12 months, has l ack of transportation kept you from medical appointments or from getting medications? 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 Pulse - - Temperature 36.7 ??C (98 ??F) 03/08/2017 2:03 PM CDT Respiratory Rate 18 03/08/2017 2:03 PM CDT Oxygen Saturation 99% 03/08/2017 2:03 PM CDT Inhaled Oxygen Concentration - - Weight 86.2 kg (190 lb) 03/08/2017 10:06 AM CDT Height 160 cm (5' 3 ) 03/08/2017 10:06 AM CDT Body Mass Index 33.66 03/08/2017 10:06 AM CDT Plan of Treatment Health Maintenance Due Date Last Done Comments DTAP/TDAP/TD VACCINES (1 - Tdap) 2003 HEPATITIS B VACCINES (1 of 3 - 19+ 3-dose series) 2003 CERVICAL CANCER SCREENING 2014 INFLUENZA VACCINE (#1) 2024 BREAST CANCER SCREENING 2024 HPV VACCINES Aged Out No longer eligi ble based on patient's age to complete this topic PNEUMOCOCCAL VACCINE 0-64 YEARS Aged Out No longer eligible based on patient's age to complete this topic Insurance [employer] [facility]
--- OUTSIDE RECORDS SUMMARY | 2025-01-05 11:04 | XMS_ITS | Clinical Summary ---
Author Organization [facility] Address [address] 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 0 Active labetaloL (NORMODYNE) 200 mg tablet Take 100 mg by mouth 2 times daily. 0 Active enoxaparin sodium (LOVENOX SUBCUT) Inject by subcutaneous injection. 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
[2025-01-05 11:33] LABS: Basophils % 0.3 %; Eosinophils % 0.3 %; Hematocrit 27.9 % (36-47); Lymphocytes # 1.1 10^3/uL (0.8-4.8); Lymphocytes % 16.1 %; Mean Corpuscular HGB Conc 29.4 g/dL (30-55); Mean Corpuscular Hemoglobin 20.3 pg (27-33); Mean Corpuscular Volume 69.1 fl (85-98); Monocytes # 0.5 10^3/uL (0.2-0.9); Monocytes % 7.2 %; Neutrophils # 5.03 10^3/uL (1.8-7.7); Neutrophils % 75.5 %; Nucleated Red Blood Cells % 0 %; Platelet Count 226 10^3/cmm (157-399); Red Blood Count 4.04 10^6/uL (3.85-5.65); Red Cell Distribution Width 16.4 % (12.1-15.1); White Blood Count 6.66 10^3/uL (3.29-11.43)
--- NOTE | 2025-01-05 11:48 | P.HP_ITS ---
Providers/Chief Complaint 2 Admitting Physician: Jose Elias Alvarez MD Primary HEEL GOUGER: Jose Elias Alvarez MD Primary Care Provider: Easton Alcaraz MD Chief Complaint: scheduled repeat HPI HEEL GOUGER History of Present Illness Elizabeth Vincent is a 39 year old female patient with an unknown LMP, JEFF of 01/24/24 based off her IVF transfer date, placing her at 37 w 3 d gestation today. No c/o + active movements admitted for repeat patient followed by Sandrita ORTEGA. presently on lovenox 40 mg sq daily and Procardia 30 mg XL one po daily result of IVF and donor embryo conception date, date of IVF, was May 02, 2024 h/o BTL May 31, 2010 h/o tubal reversal July 2015 h/o low-transverse 2016 for delivery of triplets, at [place] h/o BTL September 14, 2020 h/o September 14, 2020 IVF May 02, 2024 h/o chronic hypertension, on Procardia 30 mg XL daily h/o congestive heart failure h/o deep venous thrombosis h/o c-sections x two Medications/Allergies Home Medications ?Medication ?Instructions ?Recorded ?Confirmed ?Last Taken ?Type sumatriptan succinate 100 mg 100 mg PO Q2H PRN migrain e 04/15/24 01/05/25 Unknown Rx tablet (Imitrex) headache 30 days #15 tabs doxylamine 10 mg-pyridoxine (vit 1 tab PO BID #60 tabs 07/04/24 01/05/25 Unknown Rx B6) 10 mg tablet,delayed release (Diclegis) nifedipine 30 mg tablet,extended 30 mg PO BID #30 tabs 07/04/24 01/05/25 01/04/25 07:00 Rx release nifedipine 30 mg tablet,extended 30 mg PO DAILY #30 ta bs 07/28/24 01/05/25 01/04/25 07:00 Rx release 24 hr ondansetron 4 mg disintegrating See Rx Instructions .R oute 08/13/24 01/05/25 12/19/24 Rx tablet .COMPLEX #30 ea enoxaparin 40 mg/0.4 mL 40 mg SUBCUT DAILY 09/14/24 01/05/25 01/03/25 07:00 History subcutaneous syringe (Lovenox) albuterol sulfate 90 mcg/actuation 2 puff inhalation Q 6H PRN 09/23/24 01/05/25 Unknown Rx aerosol inhaler (Ventolin HFA) shortness of breath or wheezing #8.5 grams Allergies Allergy/AdvReac Type Severity Reaction Status Date / Time levofloxacin (From Levaquin) Allergy Mild Hives Verified 12/23/24 12:02 Penicillins Allergy Mild Hives Verified 12/23/24 12:02 PFS HEEL GOUGER 2 PFSH: Medical History Allergic rhinitis due to allergen Factitious disorder Dx in 2003 Migraines No pertinent past medical history Denies asthma, seizures, PE, diabetes. PCP: Dr. Boo H/O deep venous thrombosis She states that in March 2016 she had a DVT in her left calf while undergoing her first cycle of IVF with hormones and was told that the DVT was due to hormones Hypertension Reports that she had preeclampsia and developed congestive heart failure in the time. She states that she was on a lot of blood pressure medications at that time and was able to wean off of this and is just on hydrochlorothiazide at this time. She has not really been monitoring her blood pressures prior to finding out she was . -EKG done on 03/17/2020 showed sinus rhythm Surgical History S/P tubal ligation (09/14/20) Total salpingectomy (repeat sterilization). Performed by Dr. Bhatt at [facility] in [place], [place]. -Pathology showed no histological changes S/P repeat low transverse (09/14/20) With repeat tubal ligation. Performed by Dr. Bhatt at [facility] in [place], [place]. H/O section (~2016) delivery performed in 2017 delivery of triplets. Surgery performed in [facility]-operative reports were received on 06/02/2020 and scanned- low transverse delivery via Pfannenstiel incision, 2 layer closure without any extensions. History of incision and drainage (08/29/16) 08/29/16--scalp H/O laparoscopy (~03/2014) 03/2014--Diagnostic laparoscopy done for pelvic pain by Dr. Topete. Adhesions were taken down. H/O laparoscopy (10/06/08) 10/06/2008--Performed by Dr Rj Ha at [facility] in [place], [place] -Return for left ovarian cyst and pelvic pain. During laparoscopy patient was noted to have omental adhesions adherent to the left pelvic sidewall down underneath the left ovary also indications of the left fallopian tube to the ovary. Uterus was normal and appendix was normal as well. Operative report has been scanned. H/O dilation and curettage 2003-Performed at [facility] in [place], [place] 03/19/09-suction dilation and curettage done for incomplete Performed by Dr Rj Ha at [facility] in [place], [place]. History of cholecystectomy (~2004) 2004- Performed at [facility] in [place], [place]. she states that her gallbladder was first removed and that she had gallstones into the bile duct she was then transferred to [place] with a second surgery was performed to remove the gallstones from the bile duct. H/O tubal ligation (05/31/10) 05/31/2010--done --Bilateral partial salpingectomy Performed by Dr Ha at [facility] in [place], [place] History of reversal of tubal ligation (~07/2015) 07/2015 laparotomy with reanastomosis of fallopian tubes. Right and left ampullary infundibular anastomosis was done Performed by Dr Rosio Bishop in [facility]. Family History Father Heart disease Hypertension Mother Hypertension Diabetes Hyperlipidemia Family/Other Breast cancer Maternal aunt, diagnosed at age 40 Sister Breast cancer diagnosed at age 40 Heart disease 2 sisters Grandmother Suicide patnernal Denies family history of Colon cancer Ovarian cancer Uterine cancer Social History Smoking and tobacco/nicotine status: never used tobacco/nicotine Alcohol intake: never Substance/Drug Use: never History History History 2 11 Term 5 5 Miscarriages/Ectopic 3 Living Children 10 Care JEFF Calculator 2 Estimated Delivery Date Method Current WG Current Estimate 01/23/25 Conception 37w 3d Specific Issues/Plans SUPERVISION OF HIGH RISK HX OF GESTATIONAL DIABETES CURRENTLY HX OF PREECLAMPSIA CURRENT HX OF CONGESTIVE HEART FAILURE CURRENTLY HX OF X 2 CURRENTLY HX OF CHOLESTASIS CURRENTLY H/O DVT HX OF GASTRIC SLEEVE SURGERY IN 2021 CURRENT RESULT OF EMBRYO DONOR AND IVF IN [facility] -- x5, x2 CHRONIC HYPERTENSION --- taking 30 mg of procardia ER BID SEVERE NAUSEA AND VOMITING DURING --- taking diclegis, reglan, zofran MIGRAINES--- taking fioricet for migraines BLEEDING IN EARLY --- u/s 07/21/24 showed small small subchorionic hemmorrhage, getting repeat ultrasound on 08/18 at [facility] Vitals/I&O/Wt Last Vital Signs Temp 97.3 F L 01/05/25 11:22 Pulse 90 01/05/25 11:42 BP 126/80 01/05/25 11:42 Physical Exam 2 Narrative: Weight 170 lbs; 5?3? VS normal General comfortable, awake, alert Lungs: clear Cor: RRR FH 36 cm Ext: no edema External monitor: heart tracing good variability, + accelerations Data 01/05/25 11:15 Results Labs OB ([facility]): 2 Obstetrics US 09/07/24 Blood Type A Positive 06/18/24 Antibody Screen Negative 06/18/24 Hct 28.4 % (36-47) L 12/23/24 Hgb 8.40 g/dL (11.27-16.99) L 12/23/24 Rho(D) Type Rh positive 06/18/24 Plt Count 233 10^3/cmm (157-399) 12/23/24 Hep Bs Antigen Non-reactive (NON-REACTIVE) 07/21/24 Hep Bs Ag Confirmation Not Reportable 07/21/24 Hepatitis C Antibody Non-reactive (Nonreactive) 07/21/24 RPR Nonreactive (Nonreactive) 07/21/24 TSH 1.04 uIU/mL (0.27-4.20) 07/21/24 C.trachomatis RNA (TMA) Not detected (NOT DETECTED) N.gonorrhoeae RNA (TMA) Not detected (NOT DETECTED) T. vaginalis Amp RNA Not detected (NOT DETECTED) 07/21/24 Chlamydia/GC Comment See note 07/21/24 Gest Glucose Tolerance 103 mg/dL (70-139) 07/21/24 Uric Acid 2.6 mg/dL (2.4-5.7) 12/23/24 Ser , Semi-Qnt 974503.00 mIU/mL 06/18/24 HCG, Qual Positive (Negative) H 06/18/24 Urine Opiates Screen Negative ng/mL (Negative) 07/21/24 Ur Barbiturates Screen Negative ng/mL (Negative) 07/21/24 Ur Phencyclidine Scrn Negative ng/mL (Negative) 07/21/24 Ur Amphetamines Screen Negative ng/mL (Negative) 07/21/24 U Benzodiazepines Scrn Negative ng/mL (Negative) 07/21/24 Urine Cocaine Screen Negative ng/mL (Negative) 07/21/24 U Marijuana (THC) Screen Negative ng/mL (Negative) 07/21/24 Micro Urine Specimen 08/11/24 Pap Smear Interpret See note A 09/14/24 A&P Assessment and plan (1) : 37 w 3 d h/o c-sections x two admitted for repeat Procedure and risks explained to patient Risks include, but not limited to, infection; bleeding; injury to internal organs, such as bladder, bowel; anesthesia; blood transfusions patient understands and wants to proceed Qualifiers: Weeks of gestation: 13 weeks Qualified Code(s): Z3A.13 - 13 weeks gestation of (2) Hypertension: Qualifiers: Hypertension type: secondary to endocrine disorders Qualified Code(s): I15.2 - Hypertension secondary to endocrine disorders (3) H/O deep venous thrombosis: (4) S/P repeat low transverse : PDMP PDMP Reviewed: Not Reviewed Attestations 2 Medical Necessity Statement*: patient at 37 w 3 d admitted for repeat Coding Level of Care Code Acute Code for Chg Fwd Diagnoses 13 weeks gestation of Z3A.13 Weeks of gestation: 13 weeks Hypertension due to endocrine disorder I15.2 Hypertension type: secondary to endocrine disorders H/O deep venous thrombosis Z86.718 S/P repeat low transverse Z98.891 Time Spent (min) 60
[2025-01-05] MEDS: lactated ringers 1,000 ML 999 ML IV (11:50)
[2025-01-05 11:54] LABS: Slide Review Slide Review Perform
[2025-01-05] MEDS: metoclopramide 5 mg/mL SDV 2 mL 10 MG IVP (12:58)
[2025-01-05] MEDS: citric acid-sodium citrate 30 mL UDC PO (12:58)
[2025-01-05] MEDS: famotidine 20 mg/2 mL INJ IVP (12:59)
[2025-01-05 13:14] LABS: Amphetamines Screen Urine Negative (Negative); Barbiturates Screen Urine Negative (Negative); Benzodiazepines Screen Urine Negative (Negative); Cocaine Screen Urine Negative (Negative); Opiate Screen Urine Negative (Negative); PCP Screen Urine Negative (Negative); THC Screen Urine Negative (Negative)
--- NOTE | 2025-01-05 13:17 | W.PM.OPSUD ---
Surgery/Procedure H&P Update DATE OF PROCEDURE: January 05, 2025 DATE H&P PERFORMED: 12/23/24 H&P UPDATE INFORMATION: I have reviewed H&P completed within last 30 days, I have examined patient prior to procedure and No changes to prior documentation PLANNED PROCEDURE: Operation Date: 01/05/25 13:20 Proposed Procedures p Section Repeat 86224, O34.219(Not Applicable) - Jose Elias Alvarez MD
--- NOTE | 2025-01-05 13:24 | P.ANESASSM_ITS ---
Pre-Anesthetic Assessment Height/Weight: Height 1.6 m Weight 75.75 kg Temp Pulse BP O2 Del Method 97.3 F L 90 126/80 Room Air 01/05/25 11:22 01/05/25 11:42 01/05/25 11:42 01/05/25 11:01 Operation Date: 01/05/25 13:20 Proposed Procedures p Section Repeat 73554, O34.219(Not Applicable) - Jose Elias Alvarez MD Was Beta Shital taken within 24 hours: N/A Was Clonidine taken within 24 hours: N/A Last intake: Intake Last Liquid Date 01/04/25 Last Liquid Time 22:00 Last Solid Date 01/04/25 Last Solid Time 19:00 Last Intake: 21:00 Social No alcohol and No tobacco Exam alert, oriented x 3, clear to auscultation bilaterally and regular rate & rhythm Airway Submandibular: within normal limits Cervical ROM: within normal limits Mallampati: Class II History/ROS No significant history except as noted and No significant complaints Pulmonary None reported CV/HEM Congestive Heart Failure (CHF 3days after previous of triplets. No signs or symptoms currently) and Deep Vein Thrombosis (2016 during IVF) None reported Hepatic None reported GI None reported Metabolic None reported Musc/skel None reported Neuropsych None reported Anesthetic Plan ASA status: 2 Anesthesia: Regional (specify below) (Spinal) Risk of > 500 ml blood loss (7ml/kg in children): Yes, adequate IV access and fluids planned Medications/Allergies Home Medications ?Medication ?Instructions ?Recorded ?Confirmed ?Last Taken ?Type sumatriptan succinate 100 mg 100 mg PO Q2H PRN migrain e 04/15/24 01/19/25 Unknown Rx tablet (Imitrex) headache 30 days #15 tabs enoxaparin 40 mg/0.4 mL 40 mg SUBCUT DAILY 09/14/24 01/19/25 01/03/25 07:00 History subcutaneous syringe (Lovenox) docosahexaenoic acid 200 mg mg PO DAILY 01/19/2501/19 Unknown History capsule ( DHA) ferrous sulfate 325 mg (65 mg mg PO DAILY 01/19/2510/05 Unknown History iron)/5 mL oral solution nifedipine 30 mg tablet,extended 30 mg PO DAILY #90 ta bs 01/19/25 01/19/25 Unknown Rx release 24 hr oxycodone-acetaminophen 5 mg-325 1 tab PO Q8H PRN pain 5 days #14 01/19/25 Unknown Rx mg tablet (Percocet) tabs Allergies Allergy/AdvReac Type Severity Reaction Status Date / Time levofloxacin (From Levaquin) Allergy Mild Hives Verified 01/19/25 08:29 Penicillins Allergy Mild Hives Verified 01/19/25 08:29 PFSH Anesthesia Medical History Allergic rhinitis due to allergen Factitious disorder Dx in 2003 Migraines No pertinent past medical history Denies asthma, seizures, PE, diabetes. PCP: Dr. Boo H/O deep venous thrombosis She states that in March 2016 she had a DVT in her left calf while undergoing her first cycle of IVF with hormones and was told that the DVT was due to hormones Hypertension Reports that she had preeclampsia and developed congestive heart failure in the time. She states that she was on a lot of blood pressure medications at that time and was able to wean off of this and is just on hydrochlorothiazide at this time. She has not really been monitoring her blood pressures prior to finding out she was . -EKG done on 03/17/2020 showed sinus rhythm Surgical History S/P tubal ligation (09/14/20) Total salpingectomy (repeat sterilization). Performed by Dr. Bhatt at [facility] in [place], [place]. -Pathology showed no histological changes S/P repeat low transverse (09/14/20) With repeat tubal ligation. Performed by Dr. Bhatt at [facility] in [place], [place]. H/O section (~2016) delivery performed in 2017 delivery of triplets. Surgery performed in [facility]-operative reports were received on 06/02/2020 and scanned- low transverse delivery via Pfannenstiel incision, 2 layer closure without any extensions. History of incision and drainage (08/29/16) 08/29/16--scalp H/O laparoscopy (~03/2014) 03/2014--Diagnostic laparoscopy done for pelvic pain by Dr. Topete. Adhesions were taken down. H/O laparoscopy (10/06/08) 10/06/2008--Performed by Dr Rj Ha at [facility] in [place], [place] -Return for left ovarian cyst and pelvic pain. During laparoscopy patient was noted to have omental adhesions adherent to the left pelvic sidewall down underneath the left ovary also indications of the left fallopian tube to the ovary. Uterus was normal and appendix was normal as well. Operative report has been scanned. H/O dilation and curettage 2003-Performed at [facility] in [place], [place] 03/19/09-suction dilation and curettage done for incomplete Performed by Dr Rj Ha at [facility] in [place], [place]. History of cholecystectomy (~2004) 2004- Performed at [facility] in [place], [place]. she states that her gallbladder was first removed and that she had gallstones into the bile duct she was then transferred to [place] with a second surgery was performed to remove the gallstones from the bile duct. H/O tubal ligation (05/31/10) 05/31/2010--done --Bilateral partial salpingectomy Performed by Dr Ha at [facility] in [place], [place] History of reversal of tubal ligation (~07/2015) 07/2015 laparotomy with reanastomosis of fallopian tubes. Right and left ampullary infundibular anastomosis was done Performed by Dr Rosio Bishop in [facility]. Family History Father Heart disease Hypertension Mother Hypertension Diabetes Hyperlipidemia Family/Other Breast cancer Maternal aunt, diagnosed at age 40 Sister Breast cancer diagnosed at age 40 Heart disease 2 sisters Grandmother Suicide patnernal Denies family history of Colon cancer Ovarian cancer Uterine cancer Social History Smoking and tobacco/nicotine status: never used tobacco/nicotine Alcohol intake: never Substance/Drug Use: never Female Reproductive History : 11 Data Anesthesia 01/06/25 16:09 Short CBC 01/05/25 Range/Units 11:15 WBC 6.66 (3.29-11.43) 10^3/uL Hgb 8.20 L (11.27-16.99) g/dL Hct 27.9 L (36-47) % MCV 69.1 L (85-98) fl Plt Count 226 (157-399) 10^3/cmm Neut % (Auto) 75.5 % Neut # (Auto) 5.03 (1.8-7.7) 10^3/uL Blood Bank 01/05/25 11:15 Blood Type A Positive Rho(D) Type Rh positive Antibody Screen Negative Cardiac Studies: 2 Echocardiogram Ultrasound 08/10/20
--- NOTE | 2025-01-05 13:40 | P.ANESASSM_ITS ---
Pre-Anesthetic Assessment Height/Weight: Height 1.6 m Weight 75.75 kg Temp Pulse BP O2 Del Method 97.3 F L 90 126/80 Room Air 01/05/25 11:22 01/05/25 11:42 01/05/25 11:42 01/05/25 11:01 Operation Date: 01/05/25 13:20 Proposed Procedures p Section Repeat 05946, O34.219(Not Applicable) - Jose Elias Alvarez MD Was Beta Shital taken within 24 hours: N/A Was Clonidine taken within 24 hours: N/A Last intake: Intake Last Liquid Date 01/04/25 Last Liquid Time 22:00 Last Solid Date 01/04/25 Last Solid Time 19:00 Last Intake: 21:00 Social No alcohol and No tobacco Exam alert, oriented x 3, clear to auscultation bilaterally and regular rate & rhythm Airway Submandibular: within normal limits Cervical ROM: within normal limits Mallampati: Class II History/ROS No significant history except as noted Pulmonary None reported CV/HEM Congestive Heart Failure (3 days after of triplets. No signs or symptoms at this time) and Hypertension (Gestational HTN. Ranges from 120's to 150's) None reported Hepatic None reported GI None reported Metabolic None reported Musc/skel None reported Neuropsych None reported Anesthetic Plan ASA status: 2 Anesthesia: Regional (specify below) (Spinal) Risk of > 500 ml blood loss (7ml/kg in children): Yes, adequate IV access and fluids planned Medications/Allergies Home Medications ?Medication ?Instructions ?Recorded ?Confirmed ?Last Taken ?Type sumatriptan succinate 100 mg 100 mg PO Q2H PRN migrain e 04/15/24 01/05/25 Unknown Rx tablet (Imitrex) headache 30 days #15 tabs doxylamine 10 mg-pyridoxine (vit 1 tab PO BID #60 tabs 07/04/24 01/05/25 Unknown Rx B6) 10 mg tablet,delayed release (Diclegis) nifedipine 30 mg tablet,extended 30 mg PO BID #30 tabs 07/04/24 01/05/25 01/04/25 07:00 Rx release nifedipine 30 mg tablet,extended 30 mg PO DAILY #30 ta bs 07/28/24 01/05/25 01/04/25 07:00 Rx release 24 hr ondansetron 4 mg disintegrating See Rx Instructions .R oute 08/13/24 01/05/25 12/19/24 Rx tablet .COMPLEX #30 ea enoxaparin 40 mg/0.4 mL 40 mg SUBCUT DAILY 09/14/24 01/05/25 01/03/25 07:00 History subcutaneous syringe (Lovenox) albuterol sulfate 90 mcg/actuation 2 puff inhalation Q 6H PRN 09/23/24 01/05/25 Unknown Rx aerosol inhaler (Ventolin HFA) shortness of breath or wheezing #8.5 grams Allergies Allergy/AdvReac Type Severity Reaction Status Date / Time levofloxacin (From Levaquin) Allergy Mild Hives Verified 12/23/24 12:02 Penicillins Allergy Mild Hives Verified 12/23/24 12:02 [facility] Anesthesia Medical History Allergic rhinitis due to allergen Factitious disorder Dx in 2003 Migraines No pertinent past medical history Denies asthma, seizures, PE, diabetes. PCP: Dr. Boo H/O deep venous thrombosis She states that in March 2016 she had a DVT in her left calf while undergoing her first cycle of IVF with hormones and was told that the DVT was due to hormones Hypertension Reports that she had preeclampsia and developed congestive heart failure in the time. She states that she was on a lot of blood pressure medications at that time and was able to wean off of this and is just on hydrochlorothiazide at this time. She has not really been monitoring her blood pressures prior to finding out she was . -EKG done on 03/17/2020 showed sinus rhythm Surgical History S/P tubal ligation (09/14/20) Total salpingectomy (repeat sterilization). Performed by Dr. Bhatt at [facility] in [place], [place]. -Pathology showed no histological changes S/P repeat low transverse (09/14/20) With repeat tubal ligation. Performed by Dr. Bhatt at [facility] in [place], [place]. H/O section (~2016) delivery performed in 2017 delivery of triplets. Surgery performed in [facility]-operative reports were received on 06/02/2020 and scanned- low transverse delivery via Pfannenstiel incision, 2 layer closure without any extensions. History of incision and drainage (08/29/16) 08/29/16--scalp H/O laparoscopy (~03/2014) 03/2014--Diagnostic laparoscopy done for pelvic pain by Dr. Topete. Adhesions were taken down. H/O laparoscopy (10/06/08) 10/06/2008--Performed by Dr Rj Ha at [facility] in [place], [place] -Return for left ovarian cyst and pelvic pain. During laparoscopy patient was noted to have omental adhesions adherent to the left pelvic sidewall down underneath the left ovary also indications of the left fallopian tube to the ovary. Uterus was normal and appendix was normal as well. Operative report has been scanned. H/O dilation and curettage 2003-Performed at [facility] in [place], [place] 03/19/09-suction dilation and curettage done for incomplete Performed by Dr Rj Ha at [facility] in [place], [place]. History of cholecystectomy (~2004) 2004- Performed at [facility] in [place], [place]. she states that her gallbladder was first removed and that she had gallstones into the bile duct she was then transferred to [place] with a second surgery was performed to remove the gallstones from the bile duct. H/O tubal ligation (05/31/10) 05/31/2010--done --Bilateral partial salpingectomy Performed by Dr Ha at [facility] in [place], [place] History of reversal of tubal ligation (~07/2015) 07/2015 laparotomy with reanastomosis of fallopian tubes. Right and left ampullary infundibular anastomosis was done Performed by Dr Rosio Bishop in [facility]. Family History Father Heart disease Hypertension Mother Hypertension Diabetes Hyperlipidemia Family/Other Breast cancer Maternal aunt, diagnosed at age 40 Sister Breast cancer diagnosed at age 40 Heart disease 2 sisters Grandmother Suicide patnernal Denies family history of Colon cancer Ovarian cancer Uterine cancer Social History Smoking and tobacco/nicotine status: never used tobacco/nicotine Alcohol intake: never Substance/Drug Use: never Female Reproductive History : 11 Data Anesthesia 01/05/25 11:15 Short CBC 01/05/25 Range/Units 11:15 WBC 6.66 (3.29-11.43) 10^3/uL Hgb 8.20 L (11.27-16.99) g/dL Hct 27.9 L (36-47) % MCV 69.1 L (85-98) fl Plt Count 226 (157-399) 10^3/cmm Neut % (Auto) 75.5 % Neut # (Auto) 5.03 (1.8-7.7) 10^3/uL Blood Bank 01/05/25 11:15 Blood Type A Positive Rho(D) Type Rh positive Antibody Screen Negative Cardiac Studies: 2 Echocardiogram Ultrasound 08/10/20
--- NOTE | 2025-01-05 14:45 | PM.OP ---
Operative Report Date of procedure: January 05, 2025 Pre-op diagnosis: 37 w 3 d gestation Previous x two For repeat h/o chronic hypertension h/o deep venous thrombosis h/o congestive heart failure Post-op diagnosis: same Post-op findings: Vigorous male infant Normal placenta and cord Normal uterus and ovaries Fallopian tubes surgically absent from previous tubal ligation Procedure done: Repeat low-transverse Implants: none Specimens removed/disposition: placenta and cord, discarded Surgeon: Jose Elias Alvarez MD Anesthesia: Spinal Estimated blood loss (mL): 500 Complications: none Findings: Vigorous male Normal placenta and cord Normal uterus and ovaries Fallopian tubes surgically absent from previous tubal ligation Condition: stable Disposition: floor Brief History: Patient with previous x two, scheduled for repeat . Procedure: Informed consent signed. Patient was taken to the operating room, placed supine in the left lateral tilt position. Spinal anesthesia and a Chua catheter were already placed. The abdomen was prepped and draped in the usual sterile fashion. A Pfannenstiel incision was made over an old scar and carried down through skin and subcutaneous tissue and fascia. The fascial incision was extended laterally with Jimenez scissors. The fascia was from the underlying rectus muscles. The rectus muscles were split in the midline. The peritoneum was entered bluntly avoiding underlying organs. A bladder flap was created. A low transverse uterine incision was made and extended laterally bluntly avoiding the uterine vessels. Clear amniotic fluid was seen. The baby was delivered in cephalic presentation atraumatically. The baby was suctioned. The cord was clamped and cut and the baby was handed to an awaiting compliance analyst. Cord blood was obtained. The placenta was manually removed intact. The uterus was not exteriorized. The uterine cavity was bluntly curetted with wet laps. The uterine incision was then closed with a continuous interlocking stitch of O chromic. Adequate hemostasis was seen. No bleeding was seen. The uterine incision was again inspected and found to have good hemostasis. The fascia was then closed with a continuous stitch of O-Vicryl. Additional interrupted stitches of O-Vicryl were used for fascial closure. The subcutaneous tissue was irrigated and inspected for hemostasis. The skin was then reapproximated using Insorb radha. Postoperative condition stable Disposition to recovery room Estimated blood loss 500 cc, no replacement Sponge, needle, and instrument counts were correct x two There were no complications
--- NOTE | 2025-01-05 14:55 | ANE.PACU2 ---
Inpatient post-anesthesia follow up: Airway intact: Yes Vital signs: Temperature 97.8 F Pulse Rate 70 Respiratory Rate 14 Blood Pressure 124/72 Pulse Oximetry 99 Oxygen Delivery Me thod Room Air Oxygen Flow Rate Fraction of Inspir ed Oxygen Hydration adequate: Yes Nausea and vomiting: No Pain level: 1 Mental status: Baseline
[2025-01-05] MEDS: dextrose 5%-lactated ringers 1,000 ML 125 ML IV (15:30)
[2025-01-05] MEDS: HYDROcodone-acetaminophen 5-325 mg Tablet PO ×2 (17:41→23:37)
[2025-01-05] MEDS: enoxaparin 40 mg/0.4 mL Syringe SUBCUT (19:51)
[2025-01-05] MEDS: ketorolac 30 mg/mL INJ IVP (19:51)
[2025-01-05] MEDS: ferrous sulfate EC 325 mg Tablet PO (19:51)
[2025-01-05] MEDS: docusate sodium 100 mg Capsule PO (19:51)
[2025-01-05] MEDS: sodium chloride 0.9% 500 ML 999 ML IV (23:38)
[2025-01-06] VITALS (19 sets, daily range): BP systolic 106–137; BP diastolic 55–71; PULSE 60–75; RESP 16–18; TEMP 36.3–36.8; O2SAT 98–99
[2025-01-06] MEDS: ketorolac 30 mg/mL INJ IVP ×3 (01:49→13:44)
[2025-01-06 02:47] LABS: Hematocrit 22.8 % (36-47); Mean Corpuscular HGB Conc 28.9 g/dL (30-55); Mean Corpuscular Hemoglobin 19.8 pg (27-33); Mean Corpuscular Volume 68.5 fl (85-98); Platelet Count 175 10^3/cmm (157-399); Red Blood Count 3.33 10^6/uL (3.85-5.65); Red Cell Distribution Width 16.6 % (12.1-15.1)
[2025-01-06] MEDS: PRENATAL VIT NO.130/IRON/FOLIC 1 EACH TABLET PO (08:15)
[2025-01-06] MEDS: ferrous sulfate EC 325 mg Tablet PO ×2 (08:16→20:51)
[2025-01-06] MEDS: docusate sodium 100 mg Capsule PO ×2 (08:16→20:52)
[2025-01-06] MEDS: sodium chloride 0.9% 100 mL Bag 50 ML IV (09:30)
--- NOTE | 2025-01-06 11:50 | PM.OBGYPN ---
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 Subjective: Interval history: c/o mild incisional pain no bleeding, nausea, vomiting tolerating PO well caring for infant without any difficulties Labor: Amniotic Membrane Status: Intact Vitals/I&O/Wt Last Vital Signs Temp 98.2 F 01/06/25 20:57 Pulse 70 01/07/25 11:21 Resp 17 01/06/25 15:27 BP 139/94 01/07/25 11:21 Pulse Ox 99 01/06/25 11:53 O2 Del Method Room Air 01/06/25 11:53 Physical Exam Narrative: afebrile, VS normal comfortable, awake, alert Lungs: clear Cor: RRR Abd: soft, nondistended, nontender fundus firm wound clean and dry Ext: normal Urinary Catheter Management: Chao: Cath Placed During This Visit: yes, but has since been removed by the nurse Reason for Continuing Indwelling Catheter: Decision to DC Catheter Urinary Catheter Date of Insertion: 01/05/25 Urinary Catheter Time of Insertion: 13:18 Date Urinary Catheter Removed: 01/06/25 Time Urinary Catheter Discontinued: 04:20 Data 01/06/25 16:09 A&P Assessment and plan (1) Term delivered: POD #1 RCS doing well continue postop care remove chao ambulate PDMP PDMP Reviewed: Last Reviewed 01/07/25 11:25 EST by Jose Elias Alvarez MD Attestations Medical Necessity Statement*: patient s/p repeat , for postop care Coding Level of Care Code Acute Code for Chg Fwd Diagnoses Term delivered O80 Time Spent (min) 20
[2025-01-06] MEDS: HYDROcodone-acetaminophen 5-325 mg Tablet PO ×2 (15:29→20:51)
[2025-01-06 16:21] LABS: Hematocrit 26.3 % (36-47); Mean Corpuscular Hemoglobin 21.4 pg (27-33); Mean Corpuscular Volume 71.1 fl (85-98); Platelet Count 183 10^3/cmm (157-399); Red Cell Distribution Width 17.8 % (12.1-15.1); White Blood Count 10.42 10^3/uL (3.29-11.43)
[2025-01-06] MEDS: enoxaparin 40 mg/0.4 mL Syringe SUBCUT (20:52)
[2025-01-06] MEDS: ibuprofen 800 mg tablet PO (22:52)
[2025-01-07] MEDS: HYDROcodone-acetaminophen 5-325 mg Tablet PO ×3 (01:31→11:28)
[2025-01-07 04:25] VITALS: BP 142/79; PULSE 71
[2025-01-07] MEDS: ibuprofen 800 mg tablet PO (08:51)
[2025-01-07] MEDS: PRENATAL VIT NO.130/IRON/FOLIC 1 EACH TABLET PO (08:51)
[2025-01-07] MEDS: ferrous sulfate EC 325 mg Tablet PO (08:51)
[2025-01-07] MEDS: docusate sodium 100 mg Capsule PO (08:51)
[2025-01-07 08:56] VITALS: BP 122/71; PULSE 82
[2025-01-07 11:21] VITALS: BP 139/94; PULSE 70
--- NOTE | 2025-01-07 14:05 | PM.OBGYDC ---
Discharge Providers [employer]RAIN ELEVATOR [employer]OR STARTER Date of Admission: 01/05/25 11:01 Date of Discharge: 01/07/25 Attending Provider at Admission: Jose Elias Alvarez MD Attending Provider at Discharge: Jose Elias Alvarez MD Consults: none Primary GRAIN ELEVATOR MOTOR STARTER: Jose Elias Alvarez MD Primary Care Provider: Easton Alcaraz MD Diagnoses at Discharge Discharge Diagnosis (1) Term delivered: Details from hospital stay: 39 y.o. h/o two previous c-sections EDC January 24, 2024 h/o chronic hypertension h/o deep venous thrombosis admitted for repeat patient underwent repeat without any complications She did well and was discharged to home on the second postoperative day Status: Acute Reason for Visit Reason for Visit: scheduled repeat Brief History: 39 y.o. h/o two previous c-sections EDC January 24, 2024 h/o chronic hypertension h/o deep venous thrombosis admitted for repeat Hospital Course Hospital Course 39 y.o. h/o two previous c-sections EDC January 24, 2024 h/o chronic hypertension h/o deep venous thrombosis admitted for repeat patient underwent repeat without any complications She did well and was discharged to home on the second postoperative day Information Peripartum Data: Infant Delivery Method: Laceration description: None Episiotomy description: None complications: none Physical Exam Narrative: General: comfortable, awake, alert VS normal. Afebrile Lungs: clear Cor: RRR Abd: soft, nontender. Wound clean and dry Ext: normal Urinary Catheter Management: Chua: Cath Placed During This Visit: yes, but has since been removed by the nurse Reason for Continuing Indwelling Catheter: Decision to DC Catheter Urinary Catheter Date of Insertion: 01/05/25 Urinary Catheter Time of Insertion: 13:18 Date Urinary Catheter Removed: 01/06/25 Time Urinary Catheter Discontinued: 04:20 History History History 11 Term 6 5 Miscarriages/Ectopic 3 Living Children 11 Discharge Data Studies Completed and Pending Laboratory Results WBC 10.42 10^3/uL (3.29-11.43) 01/06/25 16:09 RBC 3.70 10^6/uL (3.85-5.65) L 01/06/25 16:09 Hgb 7.90 g/dL (11.27-16.99) L 01/06/25 16:09 Hct 26.3 % (36-47) L 01/06/25 16:09 MCV 71.1 fl (85-98) L 01/06/25 16:09 MCH 21.4 pg (27-33) L 01/06/25 16:09 MCHC 30.0 g/dL (30-55) 01/06/25 16:09 RDW 17.8 % (12.1-15.1) H 01/06/25 16:09 Plt Count 183 10^3/cmm (157-399) 01/06/25 16:09 MPV Not Reportable 01/06/25 16:09 Neut % (Auto) 75.5 % 01/05/25 11:15 Lymph % (Auto) 16.1 % 01/05/25 11:15 [place] % (Auto) 7.2 % 01/05/25 11:15 Eos % (Auto) 0.3 % 01/05/25 11:15 Baso % (Auto) 0.3 % 01/05/25 11:15 Neut # (Auto) 5.03 10^3/uL (1.8-7.7) 01/05/25 11:15 Lymph # (Auto) 1.1 10^3/uL (0.8-4.8) 01/05/25 11:15 [place] # (Auto) 0.5 10^3/uL (0.2-0.9) 01/05/25 11:15 Eos # (Auto) 0.0 10^3/uL (0.0-0.8) 01/05/25 11:15 Baso # (Auto) 0.0 10^3/uL (0.0-0.1) 01/05/25 11:15 Nucleated RBC % (auto) 0 % 01/05/25 11:15 Nucleated RBCs # 0.0 /100WBC 01/05/25 11:15 Urine Opiates Screen Negative ng/mL (Negative) 01/05/25 11:15 Ur Barbiturates Screen Negative ng/mL (Negative) 01/05/25 11:15 Ur Phencyclidine Scrn Negative ng/mL (Negative) 01/05/25 11:15 Ur Amphetamines Screen Negative ng/mL (Negative) 01/05/25 11:15 U Benzodiazepines Scrn Negative ng/mL (Negative) 01/05/25 11:15 Urine Cocaine Screen Negative ng/mL (Negative) 01/05/25 11:15 U Marijuana (THC) Screen Negative ng/mL (Negative) 01/05/25 11:15 Blood Type A Positive 01/05/25 11:15 Rho(D) Type Rh positive 01/05/25 11:15 Antibody Screen Negative 01/05/25 11:15 Crossmatch See Detail 01/05/25 11:15 Procedures Performed repeat low-transverse Vitals Last Vital Signs Temp 98.2 F 01/06/25 20:57 Pulse 70 01/07/25 11:21 Resp 17 01/06/25 15:27 BP 139/94 01/07/25 11:21 Pulse Ox 99 01/06/25 11:53 O2 Del Method Room Air 01/06/25 11:53 Results Labs OB ([facility]): Obstetrics US 09/07/24 Blood Type A Positive 01/05/25 Antibody Screen Negative 01/05/25 Hct 26.3 % (36-47) L 01/06/25 Hgb 7.90 g/dL (11.27-16.99) L 01/06/25 Rho(D) Type Rh positive 01/05/25 Plt Count 183 10^3/cmm (157-399) 01/06/25 Hep Bs Antigen Non-reactive (NON-REACTIVE) 07/21/24 Hep Bs Ag Confirmation Not Reportable 07/21/24 Hepatitis C Antibody Non-reactive (Nonreactive) 07/21/24 RPR Nonreactive (Nonreactive) 07/21/24 TSH 1.04 uIU/mL (0.27-4.20) 07/21/24 C.trachomatis RNA (TMA) Not detected (NOT DETECTED) 07/21/24 N.gonorrhoeae RNA (TMA) Not detected (NOT DETECTED) 07/21/24 T. vaginalis Amp RNA Not detected (NOT DETECTED) 07/21/24 Chlamydia/GC Comment See note 07/21/24 Gest Glucose Tolerance 103 mg/dL (70-139) 07/21/24 Uric Acid 2.6 mg/dL (2.4-5.7) 12/23/24 Ser , Semi-Qnt 926657.00 mIU/mL 06/18/24 HCG, Qual Positive (Negative) H 06/18/24 Urine Opiates Screen Negative ng/mL (Negative) 01/05/25 Ur Barbiturates Screen Negative ng/mL (Negative) 01/05/25 Ur Phencyclidine Scrn Negative ng/mL (Negative) 01/05/25 Ur Amphetamines Screen Negative ng/mL (Negative) 01/05/25 U Benzodiazepines Scrn Negative ng/mL (Negative) 01/05/25 Urine Cocaine Screen Negative ng/mL (Negative) 01/05/25 U Marijuana (THC) Screen Negative ng/mL (Negative) 01/05/25 Micro Urine Specimen 08/11/24 Pap Smear Interpret See note A 09/14/24 Discharge Plan Discharge Patient Disposition: Home Condition: Stable Prescriptions: Continued enoxaparin [Lovenox] 40 mg/0.4 mL syringe 40 mg SUBCUT DAILY sumatriptan succinate [Imitrex] 100 mg tablet 100 mg PO Q2H PRN (Reason: migraine headache) 30 Days Qty: 15 3RF Rx Instructions: do not exceed 2 doses per 24 hrs No Action DHA 200 mg capsule PO DAILY ferrous sulfate 325 mg (65 mg iron)/5 mL solution PO DAILY nifedipine 30 mg tablet extended release 24hr 30 mg PO DAILY Qty: 90 3RF Rx Instructions: take one tab daily oxycodone-acetaminophen [Percocet] 5-325 mg tablet 1 tab PO Q8H PRN (Reason: pain) 5 Days Qty: 14 0RF Discharge Orders: Discharge Order (Routine); Ordered 01/07/25 Ordered By: Jose Elias Alvarez Referrals: Thalia Del Valle NP [Nurse Practitioner] - 01/19/25 8:00 am Jose Elias Alvarez MD [Physician] - 02/16/25 10:45 am Discharge Diet: Usual diet Discharge Activity: Increase activity as tolerated Patient Instructions: Depression (DC), Opioid Safety (DC), Preeclampsia and Eclampsia After Delivery (GEN), Hemorrhage (DC), OB WHC, OB Discharge Report, OB Food/Drug Interaction Guide, Opioid Safety, OB Home Care, Abnormal Bleeding Discharge Attestations G[employer] ELEV[employer]OR STARTER Time Spent in Discharge Care*: less than 30 min Coding Level of Care Code Acute Code for Chg Fwd Diagnoses Term delivered O80
== END 2025-01-07 11:33 | disposition home or self-care (01) | DRG 787 ==
PROVIDERS: Admitting Provider Obstetrics & Gynecology; PCP Family Medicine Adult Medicine; Visit Provider Obstetrics & Gynecology
PROC: 10D00Z1 Extraction of Products of Conception, Low, Open Approach (ICD-10-PCS; CPT 59514; principal; 2025-01-05 13:00)
DX: O34.211 Maternal care for low transverse scar from previous cesarean delivery (principal); O10.92 Unspecified pre-existing hypertension complicating childbirth; N85.8 Other specified noninflammatory disorders of uterus; Z3A.37 37 weeks gestation of pregnancy; Z37.0 Single live birth; Z86.718 Personal history of other venous thrombosis and embolism
CPT/HCPCS: 36415; 36430; 51702; 59025; 59409; 80306; 85025; 85027; 86850; 86900; 86920; 96372; 96374; 96376; J1650; J1885; J2274; J2405; J2765; J3010; J3490; J7040; J7120; J7121; J9999; P9016

== ENCOUNTER → 2025-02-16 12:19 | Outpatient (BNVA) | payer OTHER, SELFPAY | PROVIDERS: PCP Family Medicine Adult Medicine; Visit Provider Nurse Practitioner Women's Health | DX: Z39.2 Encounter for routine postpartum follow-up (principal) | CPT/HCPCS: 85025 ==

== ENCOUNTER → 2025-03-03 15:12 | Outpatient (BNVA) | payer OTHER, MEDICAID, SELFPAY | PROVIDERS: PCP Family Medicine Adult Medicine; Visit Provider Nurse Practitioner Women's Health | DX: O72.2 Delayed and secondary postpartum hemorrhage (principal); N88.8 Other specified noninflammatory disorders of cervix uteri | CPT/HCPCS: 76830 ==

== ENCOUNTER → 2025-03-08 13:12 | Outpatient (BNVA) | payer OTHER, MEDICAID, SELFPAY | PROVIDERS: PCP Family Medicine Adult Medicine; Visit Provider Obstetrics & Gynecology | DX: R87.619 Unspecified abnormal cytological findings in specimens from cervix uteri (principal) | CPT/HCPCS: 81025; 88305; 88342 ==

== ENCOUNTER → 2025-09-23 14:45 | Outpatient (BNVA) | payer OTHER, MEDICAID, SELFPAY | PROVIDERS: PCP Family Medicine Adult Medicine; Visit Provider Family Medicine | DX: E06.3 Autoimmune thyroiditis (principal); E55.9 Vitamin D deficiency, unspecified; M54.16 Radiculopathy, lumbar region; I10 Essential (primary) hypertension; R53.82 Chronic fatigue, unspecified; E05.90 Thyrotoxicosis, unspecified without thyrotoxic crisis or storm; R79.89 Other specified abnormal findings of blood chemistry | CPT/HCPCS: 80053; 80061; 82306; 82607; 84439; 84443; 84481; 85025; 85651; 86038; 86140; 86376 ==

== ENCOUNTER 2025-09-28 08:44 | Outpatient (CLI) | payer OTHER, MEDICAID, SELFPAY ==
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
== END 2025-09-28 08:45 | disposition home or self-care (01) ==
PROVIDERS: PCP Family Medicine Adult Medicine; Visit Provider Family Medicine
DX: M54.16 Radiculopathy, lumbar region (principal); M54.50 Low back pain, unspecified; M53.3 Sacrococcygeal disorders, not elsewhere classified
CPT/HCPCS: 72100; 72202

== ENCOUNTER 2025-10-19 10:03 | Outpatient (CLI) | payer OTHER, MEDICAID, SELFPAY ==
--- NOTE | 2025-10-19 10:15 | MR_ITS ---
WS: [id number] MRI LUMBAR SPINE NONCONTRAST TECHNIQUE: Sagittal T1, T2 and STIR imaging. Axial T1 and T2 imaging. CLINICAL INFORMATION: M54.16 - Radiculopathy, lumbar region COMPARISON: None. FINDINGS: Mild lumbar curve. No acute compression. No high-grade central canal stenosis. L1-L2: Normal. L2-L3: Mild facet arthropathy. Spinal canal and foramen are patent. L3-L4: No significant disc bulging. Spinal canal and foramen are patent. Mild facet arthropathy. L4-L5: Mild annular bulging. Slight narrowing subarticular recess bilaterally. RIGHT foraminal protrusion with a small annular tear impinges the exiting L4 nerve root. Mild LEFT foraminal narrowing. Mild facet arthropathy. L5-S1: Moderate facet arthropathy. Spinal canal and foramen are patent. Visualized pelvic bony structures: Normal. Paravertebral soft tissues: Normal. MR/MR lumbar spine wo con* [id number] IMPRESSION: 1. RIGHT foraminal protrusion L4-5 impinges the exiting RIGHT L4 nerve root wi th a small annular tear. Recommend correlation RIGHT L4 nerve root symptoms. 2. Mild LEFT L4-5 foraminal narrowing. 3. Mild facet arthropathy L4-L5 and L5-S1.
== END 2025-10-19 10:04 | disposition home or self-care (01) ==
LOC: RAD 10:03
PROVIDERS: PCP Family Medicine; Visit Provider Family Medicine
DX: M51.16 Intervertebral disc disorders with radiculopathy, lumbar region (principal); M48.062 Spinal stenosis, lumbar region with neurogenic claudication; M47.816 Spondylosis without myelopathy or radiculopathy, lumbar region; M47.817 Spondylosis without myelopathy or radiculopathy, lumbosacral region
CPT/HCPCS: 72148